=== PATIENT | male | born 1950 | race African-American/Black ===

== ENCOUNTER 2019-04-01 10:06 | Emergency (ER) | payer MEDICARE ==
[~2019-04-01] VITALS: Ht 177.8 cm; Wt 119.7 kg
[~2019-04-01 10:06] MED LIST: ACETAMINOPHEN650 M1 PO; AMLODIPINE BES2.5 MG PO; ATORVASTATIN CA20 MG PO; CATAPRES-TTS 31 EA TD; CATAPRES0.1 MG PO; CLONIDINE HCL0.3 MG PO; COLACE100 MG PO; CORDARONE200 MG PO; COUMADIN3 MG PO; COUMADIN5 MG PO; DIOVAN HCT 3201 EAC1 PO; DOCUSATE SODIU100 MG PO; DUONEB IH; FEOSOL325 MG PO; FUROSEMIDE40 MG PO; GABAPENTIN300 MG PO; HUMULIN R100 UNIT/2 SC; HYDRALAZINE HC100 MG PO; HYDRALAZINE HCL10 MG PO; HYDROXYZINE HCL25 MG PO; IPRATROPIU0.2 MG/1 M NEB; JANUMET PO; JANUVIA100 MG PO; JENTADUETO 2.51 EACH PEG; Janumet PO; KLOR-CON 88 MEQ PO; LACTULOSE20 GM/30 M PO; LISINOPRIL10 MG PO; LISINOPRIL40 MG PO; LOSARTAN POTAS100 MG PO; LYRICA75 MG PO; METOLAZONE5 MG PO; MILK OF MA2400 MG/10 PO; NEURONTIN100 MG PO; NEXIUM40 MG PO; NORVASC5 MG PO; PHOSLO667 MG PO; RENVELA0.8 GM PO; SERTRALINE HCL50 MG PO; SIMETHICONE80 MG PO; TAMSULOSIN HCL0.4 MG PO; TERAZOSIN HCL1 MG PO; TERAZOSIN HCL2 MG PO; TRAZODONE HCL50 MG PO; TYLENOL WITH C1 EACH PO; WARFARIN SODIU2.5 MG PO; WARFARIN SODIUM3 MG PO; WARFARIN SODIUM5 MG PO; [UNRECOGNIZED DRUG - OTHER] PO
--- OUTSIDE RECORDS SUMMARY | 2019-04-01 10:10 | XMS REPORT | Summary of Care ---
Author Organization Unknown Address Unknown Phone Unavailable Encounter HQ Encntr_alias(ROXY) [id number] Date(s): 02/07/15 - 02/07/[address] Discharge Disposition: Home Physician Attending: Chepe Perea MD Physician_Referring: Chito Hilliard NP ADVICE LINE RN Vital Signs No data available for this section Problem List No data available for this section Allergies, Adverse Reactions, Alerts No data available for this section Medications No data available for this section Results No data available for this section Immunizations No data available for this section Procedures No data available for this section Social History No data available for this section Assessment and Plan No data available for this section
--- OUTSIDE RECORDS SUMMARY | 2019-04-01 10:10 | XMS REPORT | Summary of Care ---
Author Author [facility] Organization [facility] Address Unknown Phone Unavailable Encounter ADILENE Cortés(ROXY) [id number] Date(s): 04/09/17 - 04/09/17 [facility] [address] [place] [address]- Discharge Disposition: Home or Self Care Attending Physician: Teodoro Espinoza MD Referring Physician: Teodoro Espinoza MD Vital Signs 1 2 3 Most recent to oldest [Reference Range]: 177.8 cm (04/02/17 12:13 PM) Height 98.3 DegF (04/02/17 12:28 PM) Temperature Oral [96.4-99.1 DegF] 106/62 mmHg (04/09/17 2:15 PM) 112/72 mmHg (04/09/17 1:30 PM) 116/72 mmHg (04/09/17 1:30 PM) Blood Pressure [90-140/60-90 mmHg] 16 BRMIN (04/09/17 1:30 PM) 14 BRMIN (04/09/17 1:15 PM) 12 BRMIN *LOW* (04/09/17 1:00 PM) Respiratory Rate [14-20 BRMIN] 55 bpm *LOW* (04/02/17 12:28 PM) Peripheral Pulse Rate [60-100 bpm] 111.364 kg (04/02/17 12:13 PM) Weight 35.23 m2 (04/02/17 12:13 PM) Body Mass Index Problem List Condition Effective Dates Status Health Status Informant 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) Diabetes mellitus Active type 2(Confirmed) ESRD (end stage Active renal disease)(Confirmed) Hepatitis Resolved C(Confirmed) HTN Active (hypertension)(Confi rmed) Lupus (systemic Active lupus erythematosus)(Confi rmed)2 Neuropathy(Confirmed Active ) 1Degenaritive Disc 2Coagulopathic on Warfarin at home Allergies, Adverse Reactions, Alerts Substance Reaction Severity Status NKDA Active Medications acetaminophen-codeine #3 1 tab, Route: PO, Drug Form: TAB, Dosing Weight 111.364, kg, Q4H, PRN Pain Score 4-6, Start date: 04/09/17 12:21:00 CDT, Duration: 30 day, Stop date: 05/09/17 1 2:20:00 CDT Start Date: 04/09/17 Stop Date: 04/09/17 Status: Discontinued acetaminophen-codeine #3 2 tab, Route: PO, Drug Form: TAB, Dosing Weight 111.364, kg, Q4H, PRN Pain Score 4-6, Start date: 04/09/17 12:21:00 CDT, Duration: 30 day, Stop date: 05/09/17 1 2:20:00 CDT Start Date: 04/09/17 Stop Date: 04/09/17 Status: Discontinued AMIODarone 200 mg oral tablet 200 mg=1 tab, PO, Daily, 0 Refill(s) Start Date: 04/02/17 Status: Ordered amLODIPine 2.5 mg oral tablet 2.5 mg=1 tab, PO, Daily, 0 Refill(s) Start Date: 04/02/17 Status: Ordered Ancef 2 gm, 100 mL, Route: IVPB, Drug form: INJ, PRE OP, Dosing Weight 104.545, kg, St art date: 04/02/17 13:00:00 CDT, Duration: 8 day, Stop date: 04/10/17 12:59:00 C DT, ABX Indication: Surgical Prophylaxis Notes: Same as: Ancef Start Date: 04/02/17 Stop Date: 04/09/17 Status: Discontinued ANES acetaminophen 1,000 mg, Route: PO, Drug form: TAB, ONCE, Dosing Weight 111.364, kg, PRN Pain S core 1-3, Start date: 04/09/17 12:53:00 CDT, Duration: 1 doses or times, Stop da te: Limited # of times Start Date: 04/09/17 Stop Date: 04/09/17 Status: Discontinued ANES albuterol 0.083% inhalation solution 2.49 mg, Route: NEB, Q20Min, Dosing Weight 111.364, kg, PRN Wheezing, Priority: STAT, Start date: 04/09/17 12:53:00 CDT, Duration: 30 day, Stop date: 05/09/17 1 2:52:00 CDT Start Date: 04/09/17 Stop Date: 04/09/17 Status: Discontinued ANES diphenhydrAMINE 12.5 mg, Route: IVP, Drug form: INJ, Q6H, Dosing Weight 111.364, kg, PRN Itching , Start date: 04/09/17 12:53:00 CDT, Duration: 30 day, Stop date: 05/09/17 12:52 :00 CDT Start Date: 04/09/17 Stop Date: 04/09/17 Status: Discontinued ANES fentaNYL 50 microgram, Route: IVP, Q5Min, Dosing Weight 111.364, kg, PRN Pain Score 7-10, Priority: Routine, Start date: 04/09/17 12:53:00 CDT, Duration: 2 doses or time s, Stop date: Limited # of times Start Date: 04/09/17 Stop Date: 04/09/17 Status: Discontinued ANES fentaNYL 25 microgram, Route: IVP, Q5Min, Dosing Weight 111.364, kg, PRN Pain Score 4-6, Priority: Routine, Start date: 04/09/17 12:53:00 CDT, Duration: 4 doses or times , Stop date: Limited # of times Start Date: 04/09/17 Stop Date: 04/09/17 Status: Discontinued ANES flumazenil 0.2 mg, Route: IVP, PRN, Dosing Weight 111.364, kg, PRN Benzodiazepine Reversal, Initial dose, Start date: 04/09/17 12:53:00 CDT, Duration: 30 day, Stop date: 0 05/09/17 12:52:00 CDT Start Date: 04/09/17 Stop Date: 04/09/17 Status: Discontinued ANES HYDROmorphone 0.5 mg, Route: IVP, Q5Min, Dosing Weight 111.364, kg, PRN Pain Score 7-10, Start date: 04/09/17 12:53:00 CDT, Duration: 4 doses or times, Stop date: Limited # of times Start Date: 04/09/17 Stop Date: 04/09/17 Status: Discontinued ANES meperidine 12.5 mg, Route: IVP, Q30Min, Dosing Weight 111.364, kg, PRN Other -See Comment, For shivering, Start date: 04/09/17 12:53:00 CDT, Duration: 2 doses or times, St op date: Limited # of times Start Date: 04/09/17 Stop Date: 04/09/17 Status: Discontinued ANES naloxone 0.1 mg, Route: SUB-Q, Q6H, Dosing Weight 111.364, kg, PRN Itching, Start date: 0 04/09/17 12:53:00 CDT, Duration: 30 day, Stop date: 05/09/17 12:52:00 CDT Start Date: 04/09/17 Stop Date: 04/09/17 Status: Discontinued ANES naloxone 0.4 mg, Route: IVP, Q2MIN, Dosing Weight 111.364, kg, PRN Narcotic Reversal, Sta rt date: 04/09/17 12:53:00 CDT, Duration: 8 doses or times, Stop date: Limited # of times Start Date: 04/09/17 Stop Date: 04/09/17 Status: Discontinued ANES ondansetron 4 mg, Route: IVP, ONCE, Dosing Weight 111.364, kg, PRN Nausea & Vomiting, Start date: 04/09/17 12:53:00 CDT Start Date: 04/09/17 Stop Date: 04/09/17 Status: Discontinued ANES oxyCODONE 10 mg, Route: NG, Drug form: LIQ, Q4H, Dosing Weight 111.364, kg, PRN Pain Score 7-10, Start date: 04/09/17 12:53:00 CDT, Duration: 30 day, Stop date: 05/09/17 12:52:00 CDT Start Date: 04/09/17 Stop Date: 04/09/17 Status: Discontinued ANES oxyCODONE 10 mg, Route: PO, Drug form: TAB, Q4H, Dosing Weight 111.364, kg, PRN Pain Score 7-10, Start date: 04/09/17 12:53:00 CDT, Duration: 30 day, Stop date: 05/09/17 12:52:00 CDT Start Date: 04/09/17 Stop Date: 04/09/17 Status: Discontinued ANES oxyCODONE 5 mg, Route: NG, Drug form: LIQ, Q4H, Dosing Weight 111.364, kg, PRN Pain Score 4-6, Start date: 04/09/17 12:53:00 CDT, Duration: 30 day, Stop date: 05/09/17 12 :52:00 CDT Start Date: 04/09/17 Stop Date: 04/09/17 Status: Discontinued ANES oxyCODONE 5 mg, Route: PO, Drug form: TAB, Q4H, Dosing Weight 111.364, kg, PRN Pain Score 4-6, Start date: 04/09/17 12:53:00 CDT, Duration: 30 day, Stop date: 05/09/17 12 :52:00 CDT Start Date: 04/09/17 Stop Date: 04/09/17 Status: Discontinued ANES promethazine 6.25 mg, Route: IVPB, ONCE, Dosing Weight 111.364, kg, PRN Nausea & Vomiting, Start date: 04/09/17 12:53:00 CDT Start Date: 04/09/17 Stop Date: 04/09/17 Status: Discontinued ANES scopolamine 1.5 mg transdermal film 1 patch, Route: TOP, Drug Form: ERFILM, Dosing Weight 111.364, kg, ONCE, Apply b ehind ear. Avoid use in elderly., Start date: 04/09/17 12:53:00 CDT, Stop date: 04/09/17 12:53:00 CDT Notes: Change patch every 72 hours (Same as: Transderm-Scop) Start Date: 04/09/17 Stop Date: 04/09/17 Status: Ordered cloNIDine 0.3 mg oral tablet 0.3 mg=1 tab, PO, BID, # 60 tab, 1 Refill(s) Start Date: 04/02/17 Status: Ordered Dextrose 50% Syringe 12.5 gm, Route: IVP, Dosing Weight 111.364, kg, ONCE, Start date: 04/09/17 9:44: 00 CDT, Stop date: 04/09/17 9:44:00 CDT Start Date: 04/09/17 Stop Date: 04/09/17 Status: Completed famotidine (ANES) Route: IV, Drug form: INJ, ONCE, Stop date: 04/09/17 12:17:00 CDT Start Date: 04/09/17 Stop Date: 04/09/17 Status: Completed fentaNYL (ANES) Route: IV, Drug form: INJ, ONCE, Stop date: 04/09/17 12:22:00 CDT Start Date: 04/09/17 Stop Date: 04/09/17 Status: Completed furosemide 40 mg oral tablet 40 mg=1 tab, PO, Daily, 0 Refill(s) Start Date: 04/02/17 Status: Ordered gabapentin 100 mg oral capsule 300 mg=3 cap, PO, Bedtime, 0 Refill(s) Start Date: 04/02/17 Status: Ordered hydrALAZINE 25 mg oral tablet 25 mg=1 tab, PO, BID, 0 Refill(s) Start Date: 04/02/17 Status: Ordered Januvia 100 mg oral tablet 100 mg=1 tab, PO, Daily, 0 Refill(s) Start Date: 04/02/17 Status: Ordered lidocaine (ANES) Route: IV, Drug form: INJ, ONCE, Stop date: 04/09/17 12:17:00 CDT Start Date: 04/09/17 Stop Date: 04/09/17 Status: Completed metoclopramide (ANES) Route: IV, Drug form: INJ, ONCE, Stop date: 04/09/17 12:17:00 CDT Start Date: 04/09/17 Stop Date: 04/09/17 Status: Completed midazolam (ANES) Route: IV, Drug form: SOLN, ONCE, Stop date: 04/09/17 12:17:00 CDT Start Date: 04/09/17 Stop Date: 04/09/17 Status: Completed morphine Sulfate 2 mg, Route: IVP, Q3H, Dosing Weight 111.364, kg, PRN Pain Score 1-3, Start date : 04/09/17 12:21:00 CDT, Duration: 30 day, Stop date: 05/09/17 12:20:00 CDT Start Date: 04/09/17 Stop Date: 04/09/17 Status: Discontinued ondansetron (ANES) Route: IV, Drug form: INJ, ONCE, Stop date: 04/09/17 12:22:00 CDT Start Date: 04/09/17 Stop Date: 04/09/17 Status: Completed propofol (ANES) Route: IV, Drug form: INJ, ONCE, Stop date: 04/09/17 12:17:00 CDT Start Date: 04/09/17 Stop Date: 04/09/17 Status: Completed sertraline 50 mg oral tablet 50 mg=1 tab, PO, Daily, 0 Refill(s) Start Date: 04/02/17 Status: Ordered sodium chloride 0.9% 100 ml INJ (ANES) + ceFAZolin (ANES) (ANES) Route: IV, Drug form: INJ, Start date: 04/09/17 11:18:00 CDT, Stop date: 7 12:18:00 CDT Start Date: 04/09/17 Stop Date: 04/09/17 Status: Completed sodium chloride 0.9% 250 ml INJ (ANES) + vancomycin (ANES) (ANES) Route: IV, Drug form: INJ, Start date: 04/09/17 11:16:00 CDT, Stop date: 7 12:16:00 CDT Start Date: 04/09/17 Stop Date: 04/09/17 Status: Completed sodium chloride 0.9% 500 ml INJ (ANES) Route: IV, Total Volume: 500, Start date: 04/09/17 11:00:00 CDT, Stop date: 12/25 12:00:00 CDT Start Date: 04/09/17 Stop Date: 04/09/17 Status: Completed Sodium Chloride 0.9% IV 1000 mL 1,000 mL, Rate: 25 ml/hr, Infuse over: 40 hr, Route: IV, Dosing Weight 111.364 k g, Total Volume: 1,000, Start date: 04/09/17 9:56:00 CDT, Duration: 30 day, Stop date: 05/09/17 9:55:00 CDT Start Date: 04/09/17 Stop Date: 04/09/17 Status: Discontinued vancomycin + sodium chloride 0.9% INJ 250 mL 1 gm, Route: IVPB, PRE OP, Dosing Weight 104.545, kg, Start date: 04/02/17 13:00 :00 CDT, Duration: 8 day, Stop date: 04/10/17 12:59:00 CDT, ABX Indication: Surg ical Prophylaxis Notes: TIME CRITICAL MEDICATION(Same As: Vancocin)Infusion rate< 1000 mg: infuse over 1 [id number] - 1500 mg: infuse over 1.5 [id number] - 2000 mg: infuse over 2 hours> 2001 mg: infuse over 2.5 hours MEDICATION WASTE Product Size: 1000 mgProduct Wasted: ___ mg Start Date: 04/02/17 Stop Date: 04/09/17 Status: Discontinued warfarin 3 mg oral tablet 3 mg=1 tab, PO, Daily, 0 Refill(s) Start Date: 04/02/17 Status: Ordered Results BLOOD BANK RESULTS Most recent to 1 oldest [Reference Range]: ABO/Rh O POS *Unknown* (04/02/17 1:44 PM) Antibody Scrn Negative (04/02/17 1:44 PM) ELECTROLYTES Most recent to 1 oldest [Reference Range]: Sodium Lvl [135-145 133 mEq/L mEq/L] *LOW* (04/02/17 1:44 PM) Potassium Lvl 4.1 mEq/L 4.7 mEq/L [3.5-5.1 mEq/L] (04/09/17 9:23 AM) (04/02/17 1:44 PM) Chloride Lvl [95-109 97 mEq/L mEq/L] (04/02/17 1:44 PM) CO2 [24-32 mEq/L] 25 mEq/L (04/02/17 1:44 PM) AGAP [10.0-20.0 15.7 mEq/L mEq/L] (04/02/17 1:44 PM) CHEM PANEL Most recent to 1 2 oldest [Reference Range]: Creatinine Lvl 6.10 mg/dL [0.50-1.40 mg/dL] *HI* (04/02/17 1:44 PM) eGFR 9 mL/min/1.73m2 1 *NA* (04/02/17 1:44 PM) BUN [7-22 mg/dL] 38 mg/dL *HI* (04/02/17 1:44 PM) Glucose Lvl [70-99 90 mg/dL mg/dL] (04/02/17 1:44 PM) Calcium Lvl 9.3 mg/dL [8.5-10.5 mg/dL] (04/02/17 1:44 PM) 1Result Comment: The eGFR is calculated using the CKD-EPI formula. In most young, healthy individuals the eGFR will be >90 mL/min/1.73m2. The eGFR declines with age. An eGFR of 60-89 may be normal in some populations, particularly the elderly, for whom the CKD-EPI formula has not been extensively validated. Use of the eGFR is not recommended in the following populations: Individuals with unstable creatinine concentrations, including patients and those with serious co-morbid conditions. Patients with extremes in muscle mass or diet. The data above are obtained from the National Kidney Disease Education Program ( NKDEP) which additionally recommends that when the eGFR is used in patients with extremes of body mass index for purposes of drug dosing, the eGFR should be mul tiplied by the estimated BMI. HEMATOLOGY Most recent to 1 2 oldest [Reference Range]: WBC [3.7-10.4 K/CMM] 7.7 K/CMM (04/02/17 1:44 PM) RBC [4.70-6.10 4.10 M/CMM M/CMM] *LOW* (04/02/17 1:44 PM) Hgb [14.0-18.0 g/dL] 11.6 g/dL *LOW* (04/02/17 1:44 PM) Hct [42.0-54.0 %] 35.4 % *LOW* (04/02/17 1:44 PM) MCV [80.0-94.0 fL] 86.4 fL (04/02/17 1:44 PM) MCH [27.0-31.0 pg] 28.4 pg (04/02/17 1:44 PM) MCHC [32.0-36.0 32.8 g/dL g/dL] (04/02/17 1:44 PM) RDW [11.5-14.5 %] 16.3 % *HI* (04/02/17 1:44 PM) Platelet [133-450 123 K/CMM K/CMM] *LOW* (04/02/17 1:44 PM) MPV [7.4-10.4 fL] 8.7 fL (04/02/17 1:44 PM) Segs [45.0-75.0 %] 66.1 % (04/02/17 1:44 PM) Lymphocytes 21.4 % [20.0-40.0 %] (04/02/17 1:44 PM) Monocytes [2.0-12.0 8.8 % %] (04/02/17 1:44 PM) Eosinophils [0.0-4.0 2.6 % %] (04/02/17 1:44 PM) Basophils [0.0-1.0 1.1 % %] *HI* (04/02/17 1:44 PM) Segs-Bands # 5.1 K/CMM [1.5-8.1 K/CMM] (04/02/17 1:44 PM) Lymphocytes # 1.6 K/CMM [1.0-5.5 K/CMM] (04/02/17 1:44 PM) Monocytes # [0.0-0.8 0.7 K/CMM K/CMM] (04/02/17 1:44 PM) Eosinophils # 0.2 K/CMM [0.0-0.5 K/CMM] (04/02/17 1:44 PM) Basophils # [0.0-0.2 0.1 K/CMM K/CMM] (04/02/17 1:44 PM) PT [12.0-14.7 14.7 seconds seconds] (04/02/17 1:44 PM) INR [0.85-1.17] 1.13 (04/02/17 1:44 PM) PTT [22.9-35.8 45.1 seconds seconds] *HI* (04/02/17 1:44 PM) Immunizations No data available for this section Procedures Procedure Date Related Diagnosis Body Site Cervical discectomy1 Spinal fusion2 [id number] Social History Social History Type Response Substance Abuse Use: None. Alcohol Past Smoking Status Former smoker; Exposure to Tobacco Smoke None; Cigarette Smoking Last 365 Days No; Reg Smoking Cessation Counseling No Assessment and Plan No data available for this section
--- OUTSIDE RECORDS SUMMARY | 2019-04-01 10:10 | XMS REPORT | Summary of Care ---
Author Organization Unknown Address Unknown Phone Unavailable Encounter HQ Alexyr_kourtney(ROXY) [id number] Date(s): 10/24/14 - 10/24/14 [facility] [address] Discharge Disposition: Home Physician Attending: Lauren Obrien MD Reason for Visit 786.59 Problem List No data available for this section Allergies, Adverse Reactions, Alerts No data available for this section Medications No data available for this section Medications Administered During Your Visit No data available for this section Immunizations No data available for this section
--- OUTSIDE RECORDS SUMMARY | 2019-04-01 10:10 | XMS REPORT | Summary of Care ---
Author Author [facility] Organization [facility] Address Unknown Phone Unavailable Encounter ADILENE Cortés(ROXY) [id number] Date(s): 06/04/17 - 06/04/17 [facility] [address] [place] [address]- Discharge Disposition: Home or Self Care Attending Physician: Teodoro Espinoza MD Referring Physician: Teodoro Espinoza MD Vital Signs 1 2 3 Most recent to oldest [Reference Range]: 140/79 mmHg (06/04/17 12:45 PM) 121/76 mmHg (06/04/17 12:30 PM) 145/82 mmHg *HI* (06/04/17 12:15 PM) Blood Pressure [90-140/60-90 mmHg] 17 BRMIN (06/04/17 12:45 PM) 14 BRMIN (06/04/17 12:30 PM) 14 BRMIN (06/04/17 12:15 PM) Respiratory Rate [14-20 BRMIN] Problem List Condition Effective Dates Status Health Status Informant 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) Diabetes mellitus Active type 2(Confirmed) ESRD (end stage Active renal disease)(Confirmed) Hepatitis Resolved C(Confirmed) HTN Active (hypertension)(Confi rmed) Lupus (systemic Active lupus erythematosus)(Confi rmed)2 Neuropathy(Confirmed Active ) 1Degenaritive Disc 2Coagulopathic on Warfarin at home Allergies, Adverse Reactions, Alerts Substance Reaction Severity Status NKDA Active Medications No data available for this section Results No data available for this section Immunizations No data available for this section Procedures Procedure Date Related Diagnosis Body Site Cervical discectomy1 Spinal fusion2 [id number] Social History Social History Type Response Substance Abuse Use: None. Alcohol Past Smoking Status Former smoker; Exposure to Tobacco Smoke None; Cigarette Smoking Last 365 Days No; Reg Smoking Cessation Counseling No Assessment and Plan No data available for this section
--- OUTSIDE RECORDS SUMMARY | 2019-04-01 10:11 | XMS REPORT ---
Author Author [facility] Address Unknown Phone Unavailable Care Team Providers [facility] Name Role Phone KERI ISABEL Unavailable Unavailable Problems This patient has no known problems. Allergies, Adverse Reactions, Alerts This patient has no known allergies or adverse reactions. Medications This patient has no known medications. Results Test Description Test Time Test Comments Text Results Atomic Results Result Comments CT ABDOMEN/PELVIS WO [place] [address] Patient Name: FELICIANO BERMUDEZ JR MR #: [id number] : 1950 Age/Sex: 66/M Acct #: [id number] Req #: [id number] Adm Physician: KERI ISABEL MD Ordered by: KERI ISABEL MD Report #: [id number] Location: MED/SURG2 Room/Bed: [facility] Procedure: [id number] CT/CT ABDOMEN/PELVIS WO Exam Date: 07/05/17 Exam Time: 1800 REPORT STATUS: Signed EXAM: CT ABDOMEN AND PELVIS WITHOUT IV CONTRAST DATE: July 05, 2017 Time stamp on Exam: 1829 hours INDICATION: Abdominal pain COMPARISON: CT of the chest November 04, 2016 TECHNIQUE: The abdomen and pelvis were scanned using a multidetector helical scanner. Coronal and sagittal reformations were obtained. Routine protocol performed. IV Contrast: None Oral Contrast: Gastrografin CTDIvol has been reviewed. It is below the limits set by the Radiation Protocol Committee (RPC). A preliminary report was provided by Dr. Nassar July 06, 2017 at 2:01 AM. FINDINGS: LOWER THORAX: There is a 2.5 cm right middle lobe low density round nodule with internal fat. This has decreased in size from 4 cm compared to prior CT November 04, 2016. Right middle lobe and lingular scarring. LIVER: Nodular liver contour and cirrhotic morphology. BILIARY: The gallbladder is unremarkable. No ductal dilation. SPLEEN: Mild splenomegaly PANCREAS: No masses ADRENALS: No nodules KIDNEYS: No nephroureterolithiasis or hydronephrosis. GI TRACT: The stomach is distended with oral contrast. No small or large bowel dilation. Normal appendix. VESSELS: No aneurysms PERITONEUM/RETROPERITONEUM: No free air or fluid LYMPH NODES: No lymphadenopathy REPRODUCTIVE ORGANS: Unremarkable BLADDER: Unremarkable SOFT TISSUES: Unremarkable BONES: Multiple old right-sided rib fractures. IMPRESSION: The stomach is very distended with Gastrografin and debris. This may be secondary to gastroparesis or simply recently ingested meal and Gastrografin. Cirrhotic liver morphology and mild splenomegaly. Signed by: Dr. Raina Camacho M.D. on 07/20/2017 10:37 PM Dictated By: RIANA CAMACHO MD 36 Transcribed By: DUNCAN on 07/20/172236 COPY TO: KERI ISABEL MD
--- OUTSIDE RECORDS SUMMARY | 2019-04-01 10:11 | XMS REPORT | Summary of Care ---
Author Author [facility] Organization [facility] Address Unknown Phone Unavailable Encounter ADILENE Cortés(ORXY) [id number] Date(s): 12/28/15 - 01/10/16 [facility] [address] [facility] provided by [facility] [place] [address]- Discharge Disposition: Jail Care Attending Physician: Micaela Xavier MD Admitting Physician: Micaela Xavier MD Referring Physician: Rodger Hull MD Vital Signs 1 2 3 Most recent to oldest [Reference Range]: 177.8 cm (12/28/15 11:37 PM) Height 129.2 kg (01/10/16 5:17 AM) 135.3 kg (01/09/16 5:05 AM) 104.005 kg (01/01/16 4:40 AM) Current Weight 112/62 mmHg (01/10/16 3:00 PM) 112/62 mmHg (01/10/16 2:00 PM) 145/87 mmHg *HI* (01/10/16 1:00 PM) Blood Pressure [90-140/60-90 mmHg] 0 BRMIN *LOW* (01/10/16 3:00 PM) 0 BRMIN *LOW* (01/10/16 2:00 PM) 19 BRMIN (01/10/16 1:00 PM) Respiratory Rate [14-20 BRMIN] 104.545 kg (12/28/15 11:37 PM) Weight 33.07 m2 (12/28/15 11:37 PM) Body Mass Index Problem List Condition Effective Dates Status Health Status Informant 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 (Same as: Tylenol Extra Streng th) Start Date: 01/07/16 Stop Date: 01/10/16 Status: Discontinued acetaminophen 1,000 mg, 31.23 mL, Route: NG, Drug form: LIQ, Q6H, Dosing Weight 104.545, kg, S tart date: 12/30/15 6:00:00, Duration: 30 day, Stop date: 01/29/16 0:00:00 Notes: Max aejfssfptfwli=3992sh/day (4 gm/day). (Same as: Tylenol) Start Date: 12/30/15 Stop Date: 01/06/16 Status: Discontinued acetaminophen 500 mg oral tablet 1,000 mg=2 tab, NG, Q6H, 0 Refill(s) Start Date: 01/10/16 Status: Ordered albumin human 25% intravenous solution 25 gm, 100 mL, Route: IVPB, Drug form: INJ, ONCE, Dosing Weight 104.545, kg, Sta rt date: 01/02/16 15:58:00, Stop date: 01/02/16 15:58:00 Notes: Lot #: Mfg: (Same as: Plasbumin-25)"blood pr oduct derivative"WASTE: F/P - Red; E -Red MEDICATION WASTE Product Size: 25 gmProduct Wasted: ___ gm Start Date: 01/02/16 Stop Date: 01/02/16 Status: Completed albumin human 25% intravenous solution 25 gm, 100 mL, Route: IVPB, Drug form: INJ, Q8H, Dosing Weight 104.545, kg, Star t date: 01/05/16 8:00:00, Duration: 3 doses or times, Stop date: 01/06/16 0:00:0 0 Notes: Lot #: Mfg: (Same as: Plasbumin-25)"blood pr oduct derivative"WASTE: F/P - Red; E -Red MEDICATION WASTE Product Size: 25 gmProduct Wasted: ___ gm Start Date: 01/05/16 Stop Date: 01/06/16 Status: Completed albuterol 0.083% inhalation solution 2.49 mg, 3 mL, Route: NEB, Drug form: SOLN, RQ4H, Dosing Weight 104.545, kg, PRN Wheezing, Start date: 01/04/16 23:59:00, Duration: 30 day, Stop date: 02/03/16 23:58:00, Pediatric Dosing Notes: SEE RT DOCUMENTATION (Same as: Brannon) Start Date: 01/04/16 Stop Date: 01/10/16 Status: Discontinued albuterol 0.083% inhalation solution NEB, RQ4H, PRN Wheezing, Pediatric Dosing, 0 Refill(s) Start Date: 01/10/16 Status: Ordered albuterol 0.083% inhalation solution 1.245 mg, 1.5 mL, Route: NEB, Drug form: SOLN, RQ6H, Dosing Weight 104.545, kg, PRN Wheezing, Start date: 01/02/16 16:30:00, Duration: 30 day, Stop date: 16:29:00 Notes: SEE RT DOCUMENTATION (Same as: Brannon) Start Date: 01/02/16 Stop Date: 01/04/16 Status: Discontinued amLODIPine 5 mg, 1 tab, Route: PEG, Drug form: TAB, Daily, Dosing Weight 104.545, kg, Start date: 01/08/16 10:00:00, Duration: 30 day, Stop date: 02/07/16 9:00:00 Notes: (Same as: Analilia) Start Date: 01/08/16 Stop Date: 01/10/16 Status: Discontinued amLODIPine 10 mg, 1 tab, Route: PEG, Drug form: TAB, Daily, Dosing Weight 104.545, kg, Star t date: 01/11/16 9:00:00, Duration: 30 day, Stop date: 02/09/16 9:00:00 Notes: (Same as: Norvasc) Start Date: 01/11/16 Stop Date: 01/10/16 Status: Canceled amLODIPine 10 mg oral tablet 10 mg=1 tab, PEG, Daily, 0 Refill(s) Start Date: 01/10/16 Status: Ordered amLODIPine-atorvastatin 10 mg-10 mg oral tablet 1 tab, PO, Daily, 0 Refill(s) Start Date: 01/01/16 Stop Date: 01/10/16 Status: Discontinued Ancef 2 gm, Route: IVPB, ONCE, Dosing Weight 104.545, kg, Start date: 12/31/15 10:23:0 0, Duration: 1 doses or times, Stop date: 12/31/15 10:23:00, Surgical Prophylaxi s Only; For patients < 120 kg Start Date: 12/31/15 Stop Date: 12/31/15 Status: Completed aspirin 81 mg, 1 tab, Route: PO, Drug form: ECTAB, Q24H, kg, Start date: 12/28/15 22:00: 00, Duration: 30 day, Stop date: 01/26/16 22:00:00 Notes: Do not crush or chew.(Same As: Ecotrin) Start Date: 12/28/15 Stop Date: 01/10/16 Status: Discontinued aspirin 81 mg tablet, enteric coated 81 mg=1 tab, PO, Q24H, 0 Refill(s) Start Date: 01/10/16 Status: Ordered atorvastatin 20 mg oral tablet 20 mg=1 tab, PO, Bedtime, 0 Refill(s) Start Date: 01/01/16 Stop Date: 01/10/16 Status: Discontinued bacitracin topical 1 appl, Route: TOP, Daily, Drug form: OINT, Start date: 01/01/16 9:00:00, Durati on: 30 day, Stop date: 01/30/16 9:00:00 Start Date: 01/01/16 Stop Date: 01/10/16 Status: Discontinued bacitracin topical 1 appl, Route: TOP, TID, Drug form: OINT, PRN Dry Lips, Start date: 01/01/16 2:3 4:00, Duration: 30 day, Stop date: 01/31/16 2:33:00 Start Date: 01/01/16 Stop Date: 01/10/16 Status: Discontinued bacitracin topical 1 appl, TOP, TID, PRN Dry Lips, 0 Refill(s) Start Date: 01/10/16 Status: Ordered Benadryl 25 mg, 1 cap, Route: NG, Drug form: CAP, BID, Dosing Weight 104.545, kg, PRN as needed for allergy symptoms, Start date: 01/10/16 10:15:00, Duration: 30 day, St op date: 02/09/16 10:14:00 Notes: (Same as: Benadryl) Start Date: 01/10/16 Stop Date: 01/10/16 Status: Discontinued Benadryl 25 mg, 1 cap, Route: PO, Drug form: CAP, BID, Dosing Weight 104.545, kg, Start d ate: 01/04/16 20:53:00, Duration: 30 day, Stop date: 02/03/16 17:00:00 Notes: (Same as: Benadryl) Start Date: 01/04/16 Stop Date: 01/10/16 Status: Discontinued bisacodyl 10 mg, 1 supp, Route: W[place], Drug form: SUPP, Daily, Dosing Weight 104.545, kg, PRN Constipation, Start date: 01/02/16 14:22:00, Duration: 30 day, Stop date: 01/31 14:21:00 Notes: (Same As: Dulcolax, Bisco-Lax) Start Date: 01/02/16 Stop Date: 01/10/16 Status: Discontinued bisacodyl 10 mg, 1 supp, Route: W[place], Drug form: SUPP, ONCE, Dosing Weight 104.545, kg, Star t date: 01/02/16 14:22:00, Stop date: 01/02/16 14:22:00 Notes: (Same As: Dulcolax, Bisco-Lax) Start Date: 01/02/16 Stop Date: 01/02/16 Status: Completed Cardene 40 mg in NS 200 mL (Titrate.) IV 40 mg 40 mg, 200 mL, Rate: Titrate, Start Dose: 5 mg/hr, Titration: 2.5 mg/hr every 15 minutes, Goal(s): Systolic BP < 160mmHg, Max Dose: 15 mg/hr, Route: IV, Dosing Weight 104.545 kg, Total Volume: 200, Start date: 12/30/15 23:54:00, Duration: 30 day, Stop... Notes: Same as: CardeneConcentration: (0.2 mg /1 ml ) Start Date: 12/30/15 Stop Date: 01/01/16 Status: Discontinued Cardene 40 mg in NS 200 mL (Titrate.) IV 40 mg 40 mg, 200 mL, Rate: Titrate, Start Dose: 5 mg/hr, Titration: 2.5 mg/hr every 15 minutes, Goal(s): SBP <160mmHg. Hold for HR <60, Max Dose: 15 mg/hr, Route: IV, Dosing Weight 104.545 kg, Total Volume: 200, Start date: 12/29/15 0:47:00, Duration: 30 da... Notes: Same as: CardeneConcentration: (0.2 mg /1 ml ) Start Date: 12/29/15 Stop Date: 12/29/15 Status: Discontinued ceFAZolin (SCIP) 2 gm, Route: IV, Drug form: INJ, ONCE, Dosing Weight 104.545, kg, Start date: 9:16:00, Stop date: 01/07/16 9:16:00 Start Date: 01/07/16 Stop Date: 01/07/16 Status: Completed cloNIDine 0.3 mg oral tablet 0.3 mg=1 tab, PO, BID, # 60 tab, 1 Refill(s) Start Date: 01/01/16 Stop Date: 01/10/16 Status: Discontinued D5W 1,000 mL 1,000 mL, Rate: 125 ml/hr, Infuse over: 8 hr, Route: IV, Dosing Weight 104.545 k g, Total Volume: 1,000, Start date: 01/05/16 20:39:00, Duration: 30 day, Stop da te: 02/04/16 20:38:00 Start Date: 01/05/16 Stop Date: 01/06/16 Status: Discontinued Dextrose 50% Syringe 25 gm, 50 mL, Route: IVP, Drug Form: INJ, Dosing Weight 104.545, kg, PRN, PRN Ab normal Lab Result, Start date: 01/01/16 3:09:00, Duration: 30 day, Stop date: 4:08:00, For FSBG < 40 mg/dL Start Date: 01/01/16 Stop Date: 01/06/16 Status: Discontinued Dextrose 50% Syringe 12.5 gm, 25 mL, Route: IVP, Drug Form: INJ, Dosing Weight 104.545, kg, PRN, PRN Abnormal Lab Result, Start date: 01/01/16 3:09:00, Duration: 30 day, Stop date: 01/31/16 4:08:00, For FSBG 40 mg/dL - 60 mg/dL Start Date: 01/01/16 Stop Date: 01/04/16 Status: Discontinued Dextrose 50% Syringe 25 gm, 50 mL, Route: IVP, Drug Form: INJ, Dosing Weight 104.545, kg, PRN, PRN Ab normal Lab Result, Start date: 01/02/16 16:00:00, Duration: 30 day, Stop date: 0 02/01/16 16:59:00, For FSBG < 40 mg/dL Start Date: 01/02/16 Stop Date: 01/04/16 Status: Discontinued Dextrose 50% Syringe 12.5 gm, 25 mL, Route: IVP, Drug Form: INJ, Dosing Weight 104.545, kg, PRN, PRN Abnormal Lab Result, Start date: 01/02/16 16:00:00, Duration: 30 day, Stop date: 02/01/16 16:59:00, For FSBG 40 mg/dL - 60 mg/dL Start Date: 01/02/16 Stop Date: 01/10/16 Status: Discontinued Dextrose 50% Syringe 25 gm, 50 mL, Route: IVP, Drug Form: INJ, kg, PRN, PRN Abnormal Lab Result, Star t date: 12/28/15 21:47:00, Duration: 30 day, Stop date: 01/27/16 22:46:00, For F SBG < 40 mg/dL Start Date: 12/28/15 Stop Date: 01/01/16 Status: Discontinued Dextrose 50% Syringe 12.5 gm, 25 mL, Route: IVP, Drug Form: INJ, kg, PRN, PRN Abnormal Lab Result, St art date: 12/28/15 21:47:00, Duration: 30 day, Stop date: 01/27/16 22:46:00, For FSBG 40 mg/dL - 60 mg/dL Start Date: 12/28/15 Stop Date: 01/01/16 Status: Discontinued Dilaudid 0.5 mg, 0.25 mL, Route: IVP, Drug form: INJ, ONCE, Dosing Weight 104.545, kg, Pr iority: STAT, Start date: 12/31/15 14:00:00, Stop date: 12/31/15 14:00:00 Notes: Same as: Dilaudid Start Date: 12/31/15 Stop Date: 12/31/15 Status: Completed docusate 100 mg, 1 cap, Route: NG, Drug form: CAP, Q12H, kg, Start date: 12/29/15 9:00:00 , Duration: 30 day, Stop date: 01/27/16 21:00:00 Notes: (Same as: Colace) (Do Not Crush) Start Date: 12/29/15 Stop Date: 12/29/15 Status: Canceled docusate sodium 150 mg/15 mL oral liquid 100 mg, 10 mL, Route: PO, Drug form: LIQ, BID, Dosing Weight 104.545, kg, Start date: 12/29/15 9:00:00, Duration: 30 day, Stop date: 01/27/16 17:00:00 Notes: (Same as: Colace) Start Date: 12/29/15 Stop Date: 01/10/16 Status: Discontinued docusate sodium 150 mg/15 mL oral liquid 100 mg=10 mL, PO, BID, 0 Refill(s) Start Date: 01/10/16 Status: Ordered enoxaparin 30 mg, 0.3 mL, Route: SUB-Q, Drug form: INJ, [id number], kg, Start date: 01/09/16 16:00:00, Duration: 30 day, Stop date: 02/08/16 4:00:00 Notes: (Same as: Lovenox) Start Date: 01/09/16 Stop Date: 01/10/16 Status: Discontinued enoxaparin 30 mg, 0.3 mL, Route: SUB-Q, Drug form: INJ, [id number], kg, Start date: 12/28/15 22:00:00, Duration: 30 day, Stop date: 01/27/16 10:00:00 Notes: (Same as: Lovenox) Start Date: 12/28/15 Stop Date: 12/29/15 Status: Discontinued enoxaparin 30 mg=0.3 mL, SUB-Q, [id number], 0 Refill(s) Start Date: 01/10/16 Status: Ordered enoxaparin 40 mg, 0.4 mL, Route: SUB-Q, Drug form: INJ, Q12H, kg, Start date: 12/29/15 8:00 :00, Duration: 30 day, Stop date: 01/28/16 4:00:00 Notes: (Same as: Lovenox) Start Date: 12/29/15 Stop Date: 01/09/16 Status: Discontinued famotidine 20 mg, 2 mL, Route: IVPB, Drug form: INJ, Q12H, kg, Start date: 12/29/15 9:00:00 , Duration: 30 day, Stop date: 01/27/16 21:00:00 Notes: (Same as: Pepcid)Can be dilute in 5-10cc NS IVP: Slow IV push over at le ast 2 minutes. Start Date: 12/29/15 Stop Date: 12/31/15 Status: Discontinued fentaNYL 1000 microgram in 20 mL NS (Titrate.) IV 1,000 microgram 1,000 microgram, 20 mL, Rate: Titrate, Start Dose: 50 microgram/hr, Titration: T itrate by 25 micrograms/hour every 15 minutes, Goal(s): RASS 0, Max Dose: 300 mc g/hr, Route: IV, Total Volume: 20, Start date: 12/28/15 21:47:00, Duration: 30 d ay, Stop da... Start Date: 12/28/15 Stop Date: 12/29/15 Status: Discontinued furosemide 40 mg oral tablet 40 mg=1 tab, PO, Daily, 0 Refill(s) Start Date: 01/01/16 Stop Date: 01/10/16 Status: Discontinued furosemide 40 mg oral tablet 40 mg, 1 tab, Route: PO, Drug form: TAB, Daily, Dosing Weight 104.545, kg, Prior ity: NOW, Start date: 01/02/16 14:05:00, Duration: 30 day, Stop date: 02/01/16 9 :00:00 Notes: (Same as: Lasix) May cause GI upset. Give with food or milk. Start Date: 01/02/16 Stop Date: 01/05/16 Status: Discontinued gabapentin 600 mg, 2 cap, Route: PEG, Drug form: CAP, Q8H, Dosing Weight 104.545, kg, Start date: 01/08/16 16:00:00, Duration: 30 day, Stop date: 02/07/16 8:00:00 Notes: (Same as: Neurontin) Start Date: 01/08/16 Stop Date: 01/10/16 Status: Discontinued gabapentin 300 mg, 1 cap, Route: NG, Drug form: CAP, Q8H, Dosing Weight 104.545, kg, Start date: 01/03/16 16:00:00, Duration: 30 day, Stop date: 02/02/16 8:00:00 Notes: (Same as: Neurontin) Start Date: 01/03/16 Stop Date: 01/08/16 Status: Discontinued gabapentin 300 mg oral capsule 600 mg=2 cap, PEG, Q8H, 0 Refill(s) Start Date: 01/10/16 Status: Ordered hydrALAZINE 10 mg, 0.5 mL, Route: IVP, Drug form: INJ, Q4H, Dosing Weight 104.545, kg, PRN O ther -See Comment, Start date: 12/30/15 14:34:00, Duration: 30 day, Stop date: 0 01/29/16 14:33:00, SBP > 160 Notes: (Same as: Apresoline)Push over 5 minutes Start Date: 12/30/15 Stop Date: 01/10/16 Status: Discontinued hydrALAZINE 20 mg/mL injectable solution 10 mg=0.5 mL, IVP, Q4H, PRN Other -See Comment | SBP > 160, 0 Refill(s) Start Date: 01/10/16 Status: Ordered hydromorphone 0.5 mg, 0.25 mL, Route: IVP, Drug form: INJ, ONCE, Dosing Weight 104.545, kg, Pr iority: STAT, Start date: 01/05/16 3:08:00, Stop date: 01/05/16 3:08:00 Notes: Same as: Dilaudid Start Date: 01/05/16 Stop Date: 01/05/16 Status: Completed insulin detemir 30 unit, 0.3 mL, Route: SUB-Q, Drug form: INJ, Q12H, Dosing Weight 104.545, kg, Start date: 01/10/16 21:00:00, Duration: 30 day, Stop date: 02/09/16 9:00:00 Notes: Same as LevemirDo not hold insulin without contacting prescriberWASTE: F/ P - Black; E - Municipal Trash Bin "single patient use only" Start Date: 01/10/16 Stop Date: 01/10/16 Status: Canceled insulin detemir 15 unit, 0.15 mL, Route: SUB-Q, Drug form: INJ, Q12H, Dosing Weight 104.545, kg, Start date: 01/02/16 15:59:00, Stop date: 02/01/16 9:00:00 Notes: Same as LevemirDo not hold insulin without contacting prescriberWASTE: F/ P - Black; E - Municipal Trash Bin "single patient use only" Start Date: 01/02/16 Stop Date: 01/09/16 Status: Discontinued insulin detemir 20 unit, 0.2 mL, Route: SUB-Q, Drug form: INJ, Q12H, Dosing Weight 104.545, kg, Start date: 01/09/16 21:00:00, Duration: 30 day, Stop date: 02/08/16 9:00:00 Notes: Same as LevemirDo not hold insulin without contacting prescriberWASTE: F/ P - Black; E - Municipal Trash Bin "single patient use only" Start Date: 01/09/16 Stop Date: 01/10/16 Status: Discontinued insulin detemir 100 units/mL subcutaneous solution 30 unit, SUB-Q, Q12H, 0 Refill(s) Start Date: 01/10/16 Status: Ordered Insulin regular 5 unit, 0.05 mL, Route: SUB-Q, Drug form: SOLN, PRN, Dosing Weight 104.545, kg, PRN Abnormal Lab Result, Start date: 01/02/16 16:00:00, Duration: 30 day, Stop d ate: 02/01/16 16:59:00, For FSBG 150 mg/dL - 174 mg/dL Notes: (Same as: Humulin R) Roll in palms of hands gently; Do not shake vigorou sly. "single patient use only"(Restricted to patients requiring a dose > 60 units)WASTE: F/P - Black; E - Municipal Trash Bin Stable for 28 days at room temperatureExpires in days from Date Start Date: 01/02/16 Stop Date: 01/10/16 Status: Discontinued Insulin regular 12 unit, 0.12 mL, Route: SUB-Q, Drug form: SOLN, PRN, Dosing Weight 104.545, kg, PRN Abnormal Lab Result, Start date: 01/02/16 16:00:00, Duration: 30 day, Stop date: 02/01/16 16:59:00, For FSBG >=200 mg/dL Notes: (Same as: Humulin R) Roll in palms of hands gently; Do not shake vigorou sly. "single patient use only"(Restricted to patients requiring a dose > 60 units)WASTE: F/P - Black; E - Municipal Trash Bin Stable for 28 days at room temperatureExpires in days from Date Start Date: 01/02/16 Stop Date: 01/10/16 Status: Discontinued Insulin regular 8 unit, 0.08 mL, Route: SUB-Q, Drug form: SOLN, PRN, Dosing Weight 104.545, kg, PRN Abnormal Lab Result, Start date: 01/02/16 16:00:00, Duration: 30 day, Stop d ate: 02/01/16 16:59:00, For FSBG 175 mg/dL - 199 mg/dL Notes: (Same as: Humulin R) Roll in palms of hands gently; Do not shake vigorou sly. "single patient use only"(Restricted to patients requiring a dose > 60 units)WASTE: F/P - Black; E - Municipal Trash Bin Stable for 28 days at room temperatureExpires in days from Date Start Date: 01/02/16 Stop Date: 01/10/16 Status: Discontinued Insulin regular 5 unit, 0.05 mL, Route: SUB-Q, Drug form: SOLN, PRN, kg, PRN Abnormal Lab Result , Start date: 12/28/15 21:47:00, Duration: 30 day, Stop date: 01/27/16 22:46:00, For FSBG 150 mg/dL - 174 mg/dL Notes: (Same as: Humulin R) Roll in palms of hands gently; Do not shake vigorou sly. "single patient use only"(Restricted to patients requiring a dose > 60 units)WASTE: F/P - Black; E - Municipal Trash Bin Stable for 28 days at room temperatureExpires in days from Date Start Date: 12/28/15 Stop Date: 01/01/16 Status: Discontinued Insulin regular 12 unit, 0.12 mL, Route: SUB-Q, Drug form: SOLN, PRN, kg, PRN Abnormal Lab Resul t, Start date: 12/28/15 21:47:00, Duration: 30 day, Stop date: 01/27/16 22:46:00 , For FSBG >=200 mg/dL Notes: (Same as: Humulin R) Roll in palms of hands gently; Do not shake vigorou sly. "single patient use only"(Restricted to patients requiring a dose > 60 units)WASTE: F/P - Black; E - Municipal Trash Bin Stable for 28 days at room temperatureExpires in days from Date Start Date: 12/28/15 Stop Date: 01/01/16 Status: Discontinued Insulin regular 8 unit, 0.08 mL, Route: SUB-Q, Drug form: SOLN, PRN, kg, PRN Abnormal Lab Result , Start date: 12/28/15 21:47:00, Duration: 30 day, Stop date: 01/27/16 22:46:00, For FSBG 175 mg/dL - 199 mg/dL Notes: (Same as: Humulin R) Roll in palms of hands gently; Do not shake chrisorou sly. "single patient use only"(Restricted to patients requiring a dose > 60 units)WASTE: F/P - Black; E - Municipal Trash Bin Stable for 28 days at room temperatureExpires in days from Date Start Date: 12/28/15 Stop Date: 01/01/16 Status: Discontinued Insulin regular 100 unit + Sodium Chloride 0.9% (titrate) 99 mL 99 mL, Rate: Start at 4 units/hr and Titrate, Dosing Weight 104.545, kg, Route: IVPB, Total Volume: 100, Start Date: 01/01/16 3:09:00, Duration: 30 day, Stop da te: 01/31/16 3:08:00, Replace Every: 24 hr Notes: (Same as: Humulin R and NovoLIN R)WASTE: F/P - Black; E - Municipal Trash Bin (Do not shake) Start Date: 01/01/16 Stop Date: 01/03/16 Status: Discontinued Isolyte S PH-7.4 (Bolus) IV 1,000 mL, 1000 ml/hr, Route: IV, Drug Form: SOLN, Dosing Weight 104.545, kg, ONC E, STAT, Start date: 01/04/16 11:31:00, Stop date: 01/04/16 11:31:00 Notes: (Same as: Isolyte S PH 7.4) Start Date: 01/04/16 Stop Date: 01/04/16 Status: Completed Janumet 50 mg/1000 mg oral tablet 1 tab, PO, BID, 0 Refill(s) Start Date: 01/01/16 Stop Date: 01/10/16 Status: Discontinued labetalol 10 mg, 2 mL, Route: IVP, Drug form: INJ, Q15Min, Dosing Weight 104.545, kg, PRN Hypertension, Start date: 12/30/15 15:56:00, Duration: 3 doses or times, Stop da te: Limited # of times Start Date: 12/30/15 Stop Date: 12/30/15 Status: Completed labetalol 100 mg, 1 tab, Route: PO, Drug form: TAB, Q12H, Dosing Weight 104.545, kg, Start date: 01/04/16 9:00:00, Duration: 30 day, Stop date: 02/02/16 21:00:00 Notes: With food. (Same as:Trandate, Normodyne) Start Date: 01/04/16 Stop Date: 01/06/16 Status: Discontinued labetalol 100 mg, 1 tab, Route: PO, Drug form: TAB, Q6H, Dosing Weight 104.545, kg, Start date: 01/06/16 13:00:00, Duration: 30 day, Stop date: 02/05/16 12:00:00 Notes: With food. (Same as:Trandate, Normodyne) Start Date: 01/06/16 Stop Date: 01/10/16 Status: Discontinued labetalol 10 mg, 2 mL, Route: IVP, Drug form: INJ, ONCE, kg, Start date: 12/28/15 23:23:00 , Stop date: 12/28/15 23:23:00 Start Date: 12/28/15 Stop Date: 12/28/15 Status: Completed labetalol 10 mg, 2 mL, Route: IVP, Drug form: INJ, ONCE, Dosing Weight 104.545, kg, Start date: 12/29/15 4:07:00, Stop date: 12/29/15 4:07:00, SBP >180 Start Date: 12/29/15 Stop Date: 12/29/15 Status: Completed labetalol 10 mg, Route: IVP, Drug form: INJ, [id number], Dosing Weight 104.545, kg, PRN, S tart date: 12/29/15 4:06:00, Stop date: 01/28/16 5:05:00, SBP >180 Start Date: 12/29/15 Stop Date: 12/29/15 Status: Discontinued labetalol 100 mg oral tablet 100 mg=1 tab, PO, Q6H, 0 Refill(s) Start Date: 01/10/16 Status: Ordered Lasix 40 mg, Route: PO, Drug form: TAB, Daily, Dosing Weight 104.545, kg, Start date: 01/02/16 15:57:00, Duration: 30 day, Stop date: 02/01/16 9:00:00 Start Date: 01/02/16 Stop Date: 01/02/16 Status: Discontinued Lasix 40 mg, 4 mL, Route: IVP, Drug form: INJ, Q8H, Dosing Weight 104.545, kg, Start d ate: 01/07/16 4:00:00, Duration: 2 doses or times, Stop date: 01/07/16 12:00:00 Notes: (Same as: Lasix) MEDICATION WASTE Product Size: 40 mgProduct Was odilon: ___ mg Start Date: 01/07/16 Stop Date: 01/07/16 Status: Completed Lasix 20 mg, 2 mL, Route: IV, Drug form: INJ, Q8Hnow, Dosing Weight 104.545, kg, Start date: 12/31/15 14:00:00, Duration: 3 doses or times, Stop date: 01/01/16 6:00:00 Notes: (Same as: Lasix) Start Date: 12/31/15 Stop Date: 01/01/16 Status: Completed Lasix 20 mg, 2 mL, Route: IV, Drug form: INJ, Q8H, Dosing Weight 104.545, kg, Start da te: 01/08/16 10:00:00, Duration: 3 doses or times, Stop date: 01/09/16 0:00:00 Notes: (Same as: Lasix) Start Date: 01/08/16 Stop Date: 01/09/16 Status: Completed Lasix 40 mg, 4 mL, Route: IV, Drug form: INJ, Q8Hnow, Dosing Weight 104.545, kg, Start date: 01/09/16 11:00:00, Stop date: 02/08/16 11:00:00 Notes: (Same as: Lasix) MEDICATION WASTE Product Size: 40 mgProduct Was odilon: ___ mg Start Date: 01/09/16 Stop Date: 01/10/16 Status: Discontinued Lasix 40 mg, 4 mL, Route: IVP, Drug form: INJ, Q8H, Dosing Weight 104.545, kg, Start d ate: 01/05/16 8:00:00, Duration: 3 doses or times, Stop date: 01/06/16 0:00:00 Notes: (Same as: Lasix) MEDICATION WASTE Product Size: 40 mgProduct Was odilon: ___ mg Start Date: 01/05/16 Stop Date: 01/06/16 Status: Completed Lasix 40 mg, 4 mL, Route: IVP, Drug form: INJ, Q8H, Dosing Weight 104.545, kg, Start d ate: 01/06/16 9:29:00, Duration: 1 day, Stop date: 01/07/16 4:00:00 Notes: (Same as: Lasix) MEDICATION WASTE Product Size: 40 mgProduct Was odilon: ___ mg Start Date: 01/06/16 Stop Date: 01/07/16 Status: Discontinued Lasix 40 mg, 4 mL, Route: IVP, Drug form: INJ, ONCE, Dosing Weight 104.545, kg, Priori ty: NOW, Start date: 12/30/15 23:03:00, Stop date: 12/30/15 23:03:00 Notes: (Same as: Lasix) Start Date: 12/30/15 Stop Date: 12/30/15 Status: Completed Levemir FlexPen 10 unit, 0.1 mL, Route: SUB-Q, Drug form: INJ, ONCE, Start date: 01/10/16 10:19: 00, Stop date: 01/10/16 10:19:00 Notes: Same as LevmichaelirDo not hold insulin without contacting prescriberWASTE: F/ P - Black; E - [facility] "single patient use only" Start Date: 01/10/16 Stop Date: 01/10/16 Status: Completed lidocaine 200 mg, 20 mL, Route: SUB-Q, Drug form: INJ, ONCE, Dosing Weight 104.545, kg, St art date: 01/09/16 14:49:00, Stop date: 01/09/16 14:49:00 Notes: (Same as: Xylocaine) Start Date: 01/09/16 Stop Date: 01/09/16 Status: Completed Lyrica 100 mg, 1 cap, Route: NG, Drug form: CAP, Q8H, Dosing Weight 104.545, kg, Start date: 12/30/15 16:00:00, Duration: 30 day, Stop date: 01/29/16 8:00:00 Notes: (Same as: Lyrica) Start Date: 12/30/15 Stop Date: 01/03/16 Status: Discontinued Lyrica 150 mg oral capsule 150 mg=1 cap, PO, BID, 0 Refill(s) Start Date: 01/01/16 Stop Date: 01/10/16 Status: Discontinued methadone 5 mg, 5 mL, Route: NG, Drug form: SOLN, Q8H, Dosing Weight 104.545, kg, Start da te: 12/30/15 12:00:00, Duration: 30 day, Stop date: 01/29/16 8:00:00 Notes: (Same as: Dolophine) Start Date: 12/30/15 Stop Date: 01/03/16 Status: Discontinued metoprolol tartrate 25 mg, 2 tab, Route: PO, Drug form: TAB, Q12H, Dosing Weight 104.545, kg, Start date: 12/29/15 9:00:00, Duration: 30 day, Stop date: 01/27/16 21:00:00 Notes: (Same as: Lopressor) 12.5mg=1/4 X 50 mg tab. Start Date: 12/29/15 Stop Date: 01/04/16 Status: Discontinued midazolam 4 mg, 4 mL, Route: IVP, Drug form: INJ, ONCALL, Dosing Weight 104.545, kg, Start date: 12/29/15 10:00:00, Duration: 1 doses or times Notes: (Same as: Versed) MEDICATION WASTE Product Size: 2 mgProduct Was odilon: ___ mg Start Date: 12/29/15 Stop Date: 12/29/15 Status: Completed midazolam 50 mg in NS 50 mL (Titrate.) IV 50 mg 50 mg, 50 mL, Rate: Titrate, Start Dose: 1 mg/hr, Titration: Rebolus 1 mg IV and /or Titrate by 1 milligram/hour every 30 minutes, Goal(s): RASS 0, Max Dose: 10 mg/hr, Route: IV, Total Volume: 50, Start date: 12/28/15 21:47:00, Duration: 30 day, Stop d... Notes: (Same as: Versed) Start Date: 12/28/15 Stop Date: 12/29/15 Status: Discontinued MiraLax 17 gm, 1 pkt, Route: PO, Drug form: PWDR, Daily, Dosing Weight 104.545, kg, Star t date: 12/31/15 9:00:00, Duration: 30 day, Stop date: 01/29/16 9:00:00 Notes: Dissolve in 8 oz of water or juice.(Same as: Miralax) Start Date: 12/31/15 Stop Date: 01/10/16 Status: Discontinued Mucomyst oral solution (mg) 800 mg, 4 mL, Route: INHALATION, Drug form: SOLN, RQ6H, Dosing Weight 104.545, k g, Start date: 01/02/16 18:00:00, Stop date: 02/01/16 14:00:00 Start Date: 01/02/16 Stop Date: 01/04/16 Status: Discontinued Neutra-Phos 1 pkt, Route: NG, Drug Form: PDR/REC, Dosing Weight 104.545, kg, Q8H, Start date : 12/30/15 12:00:00, Duration: 30 day, Stop date: 01/29/16 8:00:00 Notes: (Same as: Neutra-Phos) Each 1.25 gm pkt has 250mg phosphorous. Mix w/2.5 oz water and stir. Start Date: 12/30/15 Stop Date: 01/01/16 Status: Discontinued Norvasc 5 mg, 1 tab, Route: NG, Drug form: TAB, ONCE, Start date: 01/10/16 10:18:00, Sto p date: 01/10/16 10:18:00 Notes: (Same as: Norvasc) Start Date: 01/10/16 Stop Date: 01/10/16 Status: Completed Omnipaque 350mg/ml 100 mL, Route: IVP, Drug Form: SOLN, Dosing Weight 104.545, kg, ONCALL, STAT, St art date: 12/30/15 15:46:00, Duration: 1 doses or times, Dose=2.2ml/kg, Max dos f=130kx -- "To be infused by Radiology Staff ONLY" Notes: (Same as:Omnipaque 350).WASTE: F/P - Black; E - Municipal Trash Bin Start Date: 12/30/15 Stop Date: 12/30/15 Status: Completed oxyCODONE 5 mg immediate release 5 mg, 1 tab, Route: NG, Drug form: TAB, Q6H, Dosing Weight 104.545, kg, Start da te: 01/10/16 12:00:00, Duration: 30 day, Stop date: 02/09/16 6:00:00 Notes: (Same as: Roxicodone) Start Date: 01/10/16 Stop Date: 01/10/16 Status: Discontinued oxyCODONE 5 mg immediate release 5 mg, 1 tab, Route: PO, Drug form: TAB, Q6H, Dosing Weight 104.545, kg, PRN Pain Score 7-10, Start date: 01/05/16 7:55:00, Duration: 30 day, Stop date: 02/04/16 7:54:00 Notes: (Same as: Roxicodone) Start Date: 01/05/16 Stop Date: 01/05/16 Status: Discontinued oxyCODONE 5 mg immediate release 10 mg, 2 tab, Route: PO, Drug form: TAB, Q6H, Dosing Weight 104.545, kg, Start d ate: 01/05/16 14:12:00, Duration: 30 day, Stop date: 02/04/16 12:00:00 Notes: (Same as: Roxicodone) Start Date: 01/05/16 Stop Date: 01/10/16 Status: Discontinued oxyCODONE 5 mg immediate release 10 mg, 2 tab, Route: PO, Drug form: TAB, Q6H, Dosing Weight 104.545, kg, PRN Natan n Score 7-10, Start date: 01/05/16 15:00:00, Duration: 30 day, Stop date: 14:59:00 Notes: (Same as: Roxicodone) Start Date: 01/05/16 Stop Date: 01/10/16 Status: Discontinued oxyCODONE 5 mg immediate release 5 mg, 1 tab, Route: NG, Drug form: TAB, Q6H, Dosing Weight 104.545, kg, PRN Pain Score 7-10, Start date: 01/10/16 10:14:00, Duration: 30 day, Stop date: 02/09/16 10:13:00 Notes: (Same as: Roxicodone) Start Date: 01/10/16 Stop Date: 01/10/16 Status: Discontinued Peridex 0.12% topical liquid 15 ml, Route: S&SPIT, BID, Drug form: LIQ, Start date: 01/04/16 9:00:00, Duration: 30 day, Stop date: 02/02/16 17:00:00 Notes: (Same As: Peridex) Start Date: 01/04/16 Stop Date: 01/10/16 Status: Discontinued polyethylene glycol 3350 PO, Daily, 0 Refill(s) Start Date: 01/10/16 Status: Ordered potassium chloride 20 mEq/15 mL oral liquid 60 mEq, 45 mL, Route: PO, Drug form: LIQ, ONCE, Dosing Weight 104.545, kg, Start date: 01/09/16 10:38:00, Stop date: 01/09/16 10:38:00 Notes: (Same as: Potassium Chloride) Start Date: 01/09/16 Stop Date: 01/09/16 Status: Completed potassium phosphate + Sodium Chloride 0.9% IV 250 mL 30 mmol, 10 mL, Route: IVPB, ONCE, Dosing Weight 104.545, kg, Start date: 4:49:00, Stop date: 12/31/15 4:49:00 Notes: (Same as: K Phosphate.) 1 mMol phoshate has 1.47 mEq potassium Infuse o constantine 4 hours Start Date: 12/31/15 Stop Date: 12/31/15 Status: Completed potassium phosphate + Sodium Chloride 0.9% IV 250 mL 30 mmol, 10 mL, Route: IVPB, ONCE, Dosing Weight 104.545, kg, Start date: 2:57:00, Stop date: 01/09/16 2:57:00 Notes: (Same as: K Phosphate.) 1 mMol phoshate has 1.47 mEq potassium Infuse o constantine 4 hours Start Date: 01/09/16 Stop Date: 01/09/16 Status: Completed potassium phosphate + Sodium Chloride 0.9% IV 250 mL 36 mmol, 12 mL, Route: IVPB, ONCE, Dosing Weight 104.545, kg, Start date: 11:22:00, Stop date: 12/29/15 11:22:00 Notes: (Same as: K Phosphate.) 1 mMol phoshate has 1.47 mEq potassium Infuse o constantine 4 hours Start Date: 12/29/15 Stop Date: 12/29/15 Status: Completed potassium phosphate + Sodium Chloride 0.9% IV 250 mL 30 mmol, 10 mL, Route: IVPB, ONCE, Dosing Weight 104.545, kg, Start date: 4:53:00, Stop date: 12/30/15 4:53:00 Notes: (Same as: K Phosphate.) 1 mMol phoshate has 1.47 mEq potassium Infuse o constantine 4 hours Start Date: 12/30/15 Stop Date: 12/30/15 Status: Completed Precedex 400 microgram in NS 100 mL (Titrate.) IV 400 microgram 400 microgram, 100 mL, Rate: Titrate, Start Dose: 0.2 microgram/kg/hr, Titration : 0.1 microgram/kg/hr every 30 min, Goal(s): RASS (0) to (-2), Max Dose: 1.5 pito rogram/kg/hr, Route: IV, Dosing Weight 104.545 kg, Total Volume: 100, Start date : 12/29/15... Notes: (Same as: Precedex) Start Date: 12/29/15 Stop Date: 12/30/15 Status: Discontinued Precedex 400 microgram in NS 100 mL (Titrate.) IV 400 microgram + Sodium Chlorid e 0.9% IV 96 mL 400 microgram, 4 mL, Rate: Titrate, Start Dose: 0.2 microgram/kg/hr, Titration: 0.1 microgram/kg/hr every 30 min, Goal(s): RASS (0) to (-2), Max Dose: 1.5 micro gram/kg/hr, Route: IV, Dosing Weight 104.545 kg, Total Volume: 100, Start date: 12/30/15 18... 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 administration, Dosing Weight 1 04.545, kg, Route: IV, Total Volume: 250, Start Date: 12/31/15 18:06:00, Duratio n: 30 day, Stop date: 01/30/16 18:05:00, Replace Every: 24 hr Start Date: 12/31/15 Stop Date: 01/05/16 Status: Discontinued Sodium Chloride 3% inhalation solution 3 mL, Route: NEB, Drug Form: SOLN, Dosing Weight 104.545, kg, RQ6H, Start date: 01/05/16 2:00:00, Stop date: 02/03/16 20:00:00 Notes: SEE RT DOCUMENTATION (Same as: Hypertonic Saline 3%, Inhalation) Start Date: 01/05/16 Stop Date: 01/10/16 Status: Discontinued sterile water 950 mL + Dextrose 50% in Water IV 25 gm 950 mL, 125 ml/hr, Route: IV, Drug Form: INJ, Dosing Weight 104.545, kg, Start d ate: 01/06/16 11:10:00, Stop date: 02/05/16 11:09:00 Start Date: 01/06/16 Stop Date: 01/07/16 Status: Discontinued terazosin 2 mg oral capsule 2 mg=1 cap, PO, Bedtime, 0 Refill(s) Start Date: 01/01/16 Stop Date: 01/10/16 Status: Discontinued tramadol 50 mg, 1 tab, Route: PO, Drug form: TAB, Q6H, Dosing Weight 104.545, kg, Start d ate: 12/30/15 6:00:00, Duration: 30 day, Stop date: 01/29/16 0:00:00 Notes: Not to exceed 400mg/day. (Same As: Ultram) Start Date: 12/30/15 Stop Date: 01/05/16 Status: Discontinued tramadol 50 mg, PO, Q4-6H, PRN Pain, # 20 tab, 0 Refill(s) Start Date: 01/01/16 Stop Date: 01/10/16 Status: Discontinued tramadol 100 mg, 2 tab, Route: PO, Drug form: TAB, Q6H, Dosing Weight 104.545, kg, Start date: 01/05/16 18:00:00, Duration: 30 day, Stop date: 02/04/16 12:00:00 Notes: Not to exceed 400mg/day. (Same As: Ultram) Start Date: 01/05/16 Stop Date: 01/10/16 Status: Discontinued tramadol 50 mg oral tablet 100 mg=2 tab, PO, Q6H, 0 Refill(s) Start Date: 01/10/16 Status: Ordered tramadol 50 mg oral tablet 50 mg=1 tab, PO, Q4H, 0 Refill(s) Start Date: 01/01/16 Stop Date: 01/10/16 Status: Discontinued Unasyn 3 gm, 1 ea, Route: IV, Drug form: PDR/INJ, ABXQ6H, Dosing Weight 104.545, kg, St art date: 01/06/16 11:00:00, Duration: 30 day, Stop date: 02/05/16 5:00:00 Notes: Dosing based on Ampicillin component (Same as: Unasyn) Start Date: 01/06/16 Stop Date: 01/10/16 Status: Discontinued Unasyn 3 gm, 1 ea, Route: IV, Drug form: PDR/INJ, ABXQ8H, Dosing Weight 104.545, kg, Pr iority: NOW, Start date: 01/03/16 10:49:00, Duration: 30 day, Stop date: 6 4:00:00 Notes: Dosing based on Ampicillin component (Same as: Unasyn) Start Date: 01/03/16 Stop Date: 01/06/16 Status: Discontinued vecuronium bolus dose 10 mg, Route: IVP, Drug form: PDR/INJ, ONCALL, Dosing Weight 104.545, kg, Start date: 12/29/15 10:00:00, Duration: 1 doses or times Notes: (Same As: Norcuron) Start Date: 12/29/15 Stop Date: 12/29/15 Status: Completed Versed 5 mg, 5 mL, Route: IV, Drug form: INJ, ONCE, Dosing Weight 104.545, kg, Start da te: 12/30/15 17:07:00, Stop date: 12/30/15 17:07:00 Notes: (Same as: Versed) MEDICATION WASTE Product Size: 2 mgProduct Was odilon: _1__ mg Start Date: 12/30/15 Stop Date: 12/30/15 Status: Completed Versed 5 mg, 5 mL, Route: IVP, Drug form: INJ, ONCE, Dosing Weight 104.545, kg, Start d ate: 12/30/15 15:57:00, Stop date: 12/30/15 15:57:00 Notes: (Same as: Versed) MEDICATION WASTE Product Size: 2 mgProduct Was odilon: __1_ mg Start Date: 12/30/15 Stop Date: 12/30/15 Status: Completed Visipaque 320mg/ml 95 mL, Route: IVP, Drug Form: SOLN, Dosing Weight 104.545, kg, ONCALL, STAT, Sta rt date: 01/04/16 11:34:00, Duration: 1 doses or times, Stop date: 01/05/16 0:00 :00, Dose=2.2ml/kg, Max tsii=[id number] -- "To be infused by Radiology Staff ONLY" Notes: (Same as: Visipaque).WASTE: F/P - Black; E - Municipal Trash Bin Start Date: 01/04/16 Stop Date: 01/04/16 Status: Completed Visipaque 320mg/ml 125 mL, Route: IVP, Drug Form: SOLN, Dosing Weight 104.545, kg, ONCALL, STAT, St art date: 12/29/15 2:47:00, Duration: 1 doses or times, Dose=2.2ml/kg, Max dose =150ml -- "To be infused by Radiology Staff ONLY" Start Date: 12/29/15 Stop Date: 12/29/15 Status: Completed warfarin 3 mg oral tablet 3 mg=1 tab, PO, TID, 0 Refill(s) Start Date: 01/01/16 Stop Date: 01/10/16 Status: Discontinued Results BLOOD BANK RESULTS 1 2 3 Most recent to oldest [Reference Range]: O POS *Unknown* (01/06/16 12:52 AM) O POS *Unknown* (01/01/16 12:04 AM) O POS *Unknown* (12/28/15 9:53 PM) ABO/Rh Negative (01/06/16 12:52 AM) Negative (01/01/16 12:04 AM) Negative (12/28/15 9:53 PM) Antibody Scrn Modification Required (12/31/15 7:41 PM) Product available (12/31/15 6:06 PM) FFP product ELECTROLYTES 1 2 3 Most recent to oldest [Reference Range]: 160 mEq/L 1 *CRIT* (01/10/16 12:34 AM) 160 mEq/L 2 *CRIT* (01/09/16 12:23 AM) 158 mEq/L *HI* (01/08/16 12:02 AM) Sodium Lvl [135-145 mEq/L] 3.7 mEq/L (01/10/16 12:34 AM) 3.3 mEq/L *LOW* (01/09/16 12:23 AM) 3.4 mEq/L *LOW* (01/08/16 12:02 AM) Potassium Lvl [3.5-5.1 mEq/L] 123 mEq/L *HI* (01/10/16 12:34 AM) 123 mEq/L *HI* (01/09/16 12:23 AM) 121 mEq/L *HI* (01/08/16 12:02 AM) Chloride Lvl [95-109 mEq/L] 31 mEq/L (01/10/16 12:34 AM) 30 mEq/L (01/09/16 12:23 AM) 29 mEq/L (01/08/16 12:02 AM) CO2 [24-32 mEq/L] 9.7 mEq/L *LOW* (01/10/16 12:34 AM) 10.3 mEq/L (01/09/16 12:23 AM) 11.4 mEq/L (01/08/16 12:02 AM) AGAP [10.0-20.0 mEq/L] 1Result Comment: Critical Result(s) called to geno jain at 01/10/2016 01:30 by ko. Read back OK. 2Result Comment: Critical Result(s) called to ayesha Wilson at 01/09/2016 01:22 byCF. Read back OK. CHEM PANEL 1 2 3 Most recent to oldest [Reference Range]: 1.05 mg/dL (01/10/16 12:34 AM) 1.05 mg/dL (01/09/16 12:23 AM) 1.31 mg/dL (01/08/16 12:02 AM) Creatinine Lvl [0.50-1.40 mg/dL] 86 mL/min/1.73m2 1 *NA* (01/10/16 12:34 AM) 86 mL/min/1.73m2 2 *NA* (01/09/16 12:23 AM) 66 mL/min/1.73m2 3 *NA* (01/08/16 12:02 AM) eGFR 36 mg/dL *HI* (01/10/16 12:34 AM) 41 mg/dL *HI* (01/09/16 12:23 AM) 51 mg/dL *HI* (01/08/16 12:02 AM) BUN [7-22 mg/dL] 33 *HI* (12/28/15 9:53 PM) B/C Ratio [6-25] 180 mg/dL *HI* (01/10/16:34 AM) 197 mg/dL *HI* (01/09/16 12:23 AM) 225 mg/dL *HI* (01/08/16 12:02 AM) Glucose Lvl [70-99 mg/dL] 6.7 g/dL (01/02/16 10:58 AM) 6.5 g/dL (01/01/16 10:55 AM) 6.4 g/dL (12/30/15 12:02 AM) Total Protein [6.4-8.4 g/dL] 2.0 g/dL *LOW* (01/02/16 10:58 AM) 2.0 g/dL *LOW* (01/01/16 10:55 AM) 2.1 g/dL *LOW* (12/30/15 12:02 AM) Albumin Lvl [3.5-5.0 g/dL] 4.7 g/dL *HI* (01/02/16 10:58 AM) 4.5 g/dL *HI* (01/01/16 10:55 AM) 4.3 g/dL *HI* (12/30/15 12:02 AM) Globulin [2.0-4.0 g/dL] 0.4 *LOW* (01/02/16 10:58 AM) 0.4 *LOW* (01/01/16 10:55 AM) 0.5 *LOW* (12/30/15 12:02 AM) A/G Ratio [0.7-1.6] 8.6 mg/dL (01/10/16 12:34 AM) 8.0 mg/dL *LOW* (01/09/16 12:23 AM) 8.4 mg/dL *LOW* (01/08/16 12:02 AM) Calcium Lvl [8.5-10.5 mg/dL] 2.5 mg/dL (01/10/16 12:34 AM) 2.2 mg/dL *LOW* (01/09/16 12:23 AM) 3.0 mg/dL (01/08/16 12:02 AM) Phosphorus [2.5-4.5 mg/dL] 2.7 mg/dL *HI* (01/10/16 12:34 AM) 2.8 mg/dL *HI* (01/09/16 12:23 AM) 2.8 mg/dL *HI* (01/08/16 12:02 AM) Magnesium Lvl [1.8-2.4 mg/dL] 19 unit/L (01/02/16 10:58 AM) 24 unit/L (01/01/16 10:55 AM) 23 unit/L (12/30/15 12:02 AM) ALT [0-65 unit/L] 27 unit/L (01/02/16 10:58 AM) 28 unit/L (01/01/16 10:55 AM) 27 unit/L (12/30/15 12:02 AM) AST [0-37 unit/L] 65 unit/L (01/02/16 10:58 AM) 64 unit/L (01/01/16 10:55 AM) 72 unit/L (12/30/15 12:02 AM) Alk Phos [39-136 unit/L] 0.6 mg/dL (01/02/16 10:58 AM) 0.6 mg/dL (01/01/16 10:55 AM) 0.8 mg/dL (12/30/15 12:02 AM) Bili Total [0.2-1.3 mg/dL] 0.2 mg/dL (01/02/16 10:58 AM) 0.3 mg/dL (01/01/16 10:55 AM) 0.4 mg/dL *HI* (12/30/15 12:02 AM) Bili Direct [0.0-0.3 mg/dL] 0.4 mg/dL (01/02/16 10:58 AM) 0.3 mg/dL (01/01/16 10:55 AM) 0.4 mg/dL (12/30/15 12:02 AM) Bili Indirect [0.0-1.0 mg/dL] 23.0 uMol/L (12/30/15 8:15 PM) 34.0 uMol/L (12/28/15 9:53 PM) Ammonia [<=45.0 uMol/L] 0.8 mMol/L (12/28/15 9:53 PM) Lactic Acid Lvl [0.5-2.2 mMol/L] 1Result Comment: The eGFR is calculated using [...] be mul tiplied by the estimated BMI. 2Result Comment: The eGFR is calculated using the [...] be mul tiplied by the estimated BMI. 3Result Comment: The eGFR is calculated using the [...] be mul tiplied by the estimated BMI. PARATHYROID PROFILE 1 2 3 Most recent to oldest [Reference Range]: 1.10 mMol/L (12/31/15 1:51 PM) 1.13 mMol/L (12/28/15 9:53 PM) Ca Ion WB [1.05-1.25 mMol/L] 1.12 mMol/L (12/31/15 1:51 PM) 1.08 mMol/L (12/28/15 9:53 PM) Ca Norm WB [1.05-1.25 mMol/L] URINE CHEM 1 2 3 Most recent to oldest [Reference Range]: 56.90 mg/dL *NA* (01/04/16 11:08 AM) U Creatinine 47 mEq/L *NA* (01/04/16 11:08 AM) U Sodium 574 mOsm/kg (01/04/16 11:08 AM) U Osmolality [300-800 mOsm/kg] URINE AND STOOL 1 2 3 Most recent to oldest [Reference Range]: Clear (12/28/15 9:53 PM) UA Turbidity [Clear] Yellow *NA* (12/28/15 9:53 PM) UA Color [Yellow] 5.5 (12/28/15 9:53 PM) UA pH [5.0-8.0] 1.033 *HI* (12/28/15 9:53 PM) UA Spec Grav [<=1.030] Negative mg/dL *NA* (12/28/15 9:53 PM) UA Glucose [Negative mg/dL] Trace *ABN* (12/28/15 9:53 PM) UA Blood [Negative] Negative mg/dL *NA* (12/28/15 9:53 PM) UA Ketones [Negative mg/dL] 30 mg/dL *ABN* (12/28/15 9:53 PM) UA Protein [Negative mg/dL] 2.0 mg/dL *HI* (12/28/15 9:53 PM) UA Urobilinogen [0.1-1.0 mg/dL] Negative *NA* (12/28/15 9:53 PM) UA Bili [Negative] Negative (12/28/15 9:53 PM) UA Leuk Est [Negative] Negative (12/28/15 9:53 PM) UA Nitrite [Negative] 2 /HPF (12/28/15 9:53 PM) UA WBC [0-5 /HPF] 4 /HPF *HI* (12/28/15 9:53 PM) UA RBC [0-2 /HPF] None Seen *NA* (12/28/15 9:53 PM) UA Sq Epi Few /LPF *NA* (12/28/15 9:53 PM) UA Mucus [None Seen /LPF] IMMUNOLOGY 1 2 3 Most recent to oldest [Reference Range]: 13.2 mg/dL *LOW* (01/05/16 11:59 PM) 7.7 mg/dL *LOW* (12/28/15 9:53 PM) Prealbumin [18.0-45.0 mg/dL] 160.0 mg/L *HI* (01/05/16 11:59 PM) 208.0 mg/L *HI* (12/28/15 9:53 PM) CRP [<=2.9 mg/L] HEMATOLOGY 1 2 3 Most recent to oldest [Reference Range]: 10.5 K/CMM *HI* (01/10/16 12:34 AM) 10.2 K/CMM (01/09/16 12:23 AM) 11.5 K/CMM *HI* (01/08/16 12:02 AM) WBC [3.7-10.4 K/CMM] 2.37 M/CMM *LOW* (01/10/16 12:34 AM) 2.28 M/CMM *LOW* (01/09/16 12:23 AM) 2.39 M/CMM *LOW* (01/08/16 12:02 AM) RBC [4.70-6.10 M/CMM] 6.6 g/dL 1 *CRIT* (01/10/16:34 AM) 6.4 g/dL 2 *CRIT* (01/09/16:23 AM) 6.5 g/dL 3 *CRIT* (01/08/16 12:02 AM) Hgb [14.0-18.0 g/dL] 21.4 % *LOW* (01/10/16:34 AM) 20.3 % *LOW* (01/09/16:23 AM) 21.4 % *LOW* (01/08/16 12:02 AM) Hct [42.0-54.0 %] 90.2 fL (01/10/16:34 AM) 89.1 fL (01/09/16 12:23 AM) 89.3 fL (01/08/16 12:02 AM) MCV [80.0-94.0 fL] 27.7 pg (01/10/16:34 AM) 27.9 pg (01/09/16 12:23 AM) 27.2 pg (01/08/16 12:02 AM) MCH [27.0-31.0 pg] 30.7 g/dL *LOW* (01/10/16:34 AM) 31.4 g/dL *LOW* (01/09/16 12:23 AM) 30.5 g/dL *LOW* (01/08/16 12:02 AM) MCHC [32.0-36.0 g/dL] 17.1 % *HI* (01/10/16 12:34 AM) 16.4 % *HI* (01/09/16 12:23 AM) 16.1 % *HI* (01/08/16 12:02 AM) RDW [11.5-14.5 %] 197 K/CMM (01/10/16 12:34 AM) 198 K/CMM (01/09/16 12:23 AM) 218 K/CMM (01/08/16 12:02 AM) Platelet [133-450 K/CMM] 9.4 fL (01/10/16 12:34 AM) 9.2 fL (01/09/16 12:23 AM) 9.6 fL (01/08/16 12:02 AM) MPV [7.4-10.4 fL] 80.3 % *HI* (01/10/16 12:34 AM) 83.4 % *HI* (01/09/16 12:23 AM) 84.9 % *HI* (01/08/16 12:02 AM) Segs [45.0-75.0 %] 3.0 % (12/30/15 12:02 AM) 2.0 % (12/29/15 3:45 PM) 1.0 % (12/29/15 8:27 AM) Bands [0.0-11.0 %] 12.3 % *LOW* (01/10/16:34 AM) 10.2 % *LOW* (01/09/16 12:23 AM) 9.3 % *LOW* (01/08/16 12:02 AM) Lymphocytes [20.0-40.0 %] 0.0 % (12/30/15 12:02 AM) 0.0 % (12/29/15 3:45 PM) 0.0 % (12/29/15 8:27 AM) Atypical Lymphs [<=0.0 %] 4.5 % (01/10/16 12:34 AM) 4.0 % (01/09/16 12:23 AM) 3.9 % (01/08/16 12:02 AM) Monocytes [2.0-12.0 %] 2.7 % (01/10/16 12:34 AM) 1.8 % (01/09/16 12:23 AM) 1.4 % (01/08/16 12:02 AM) Eosinophils [0.0-4.0 %] 0.2 % (01/10/16 12:34 AM) 0.6 % (01/09/16 12:23 AM) 0.5 % (01/08/16 12:02 AM) Basophils [0.0-1.0 %] 1.0 % (12/29/15 3:45 PM) 2.0 % *HI* (12/29/15 8:27 AM) Metamyelocytes [0.0-1.0 %] 1.0 % *HI* (12/29/15 3:45 PM) 1.0 % *HI* (12/29/15 8:27 AM) Myelocytes [<=0.0 %] 8.4 K/CMM *HI* (01/10/16 12:34 AM) 8.5 K/CMM *HI* (01/09/16 12:23 AM) 9.8 K/CMM *HI* (01/08/16 12:02 AM) Segs-Bands # [1.5-8.1 K/CMM] 1.3 K/CMM (01/10/16 12:34 AM) 1.0 K/CMM (01/09/16 12:23 AM) 1.1 K/CMM (01/08/16 12:02 AM) Lymphocytes # [1.0-5.5 K/CMM] 0.5 K/CMM (01/10/16 12:34 AM) 0.4 K/CMM (01/09/16 12:23 AM) 0.4 K/CMM (01/08/16 12:02 AM) Monocytes # [0.0-0.8 K/CMM] 0.3 K/CMM (01/10/16 12:34 AM) 0.2 K/CMM (01/09/16 12:23 AM) 0.2 K/CMM (01/08/16 12:02 AM) Eosinophils # [0.0-0.5 K/CMM] 0.1 K/CMM (01/09/16 12:23 AM) 0.1 K/CMM (01/08/16 12:02 AM) 0.1 K/CMM (01/07/16 12:11 AM) Basophils # [0.0-0.2 K/CMM] 1+ *ABN* (12/30/15 12:02 AM) 1+ *ABN* (12/29/15 8:27 AM) Anisocyte [None Seen] slight *Unknown* (12/30/15 12:02 AM) Polychrom 1+ (12/30/15 12:02 AM) Hypochrom [None Seen] Normal (12/30/15 12:02 AM) Normal (12/29/15 8:27 AM) Plt Morph 16.8 seconds *HI* (01/02/16 10:58 AM) 19.6 seconds *HI* (01/01/16 10:55 AM) 15.9 seconds *HI* (12/28/15 9:53 PM) PT [12.0-14.7 seconds] 1.33 *HI* (01/02/16 10:58 AM) 1.62 *HI* (01/01/16 10:55 AM) 1.24 *HI* (12/28/15 9:53 PM) INR [0.85-1.17] 47.1 seconds *HI* (12/28/15 9:53 PM) PTT [22.9-35.8 seconds] 0.48 IU/mL *NA* (01/08/16 9:17 AM) 0.22 IU/mL *NA* (01/01/16 7:40 PM) Anti-Xa Low Molecular Heparin Citrated Whole Blood (01/06/16 12:52 AM) Citrated Whole Blood (01/01/16 12:02 AM) Citrated Whole Blood (12/31/15 1:51 PM) Rapid TEG Sample Type 136 seconds *HI* (01/06/16 12:52 AM) 105 seconds (01/01/16 12:02 AM) 183 seconds *HI* (12/31/15 1:51 PM) ACT (TEG) [86-118 seconds] 0.8 minutes *NA* (01/06/16 12:52 AM) 0.5 minutes *NA* (01/01/16 12:02 AM) 1.2 minutes *NA* (12/31/15 1:51 PM) Split Point 0.9 minutes *HI* (01/06/16 12:52 AM) 0.6 minutes (01/01/16 12:02 AM) 1.4 minutes *HI* (12/31/15 1:51 PM) R-time [0.4-0.7 minutes] 1.0 minutes (01/06/16 12:52 AM) 0.8 minutes (01/01/16 12:02 AM) 1.0 minutes (12/31/15 1:51 PM) K-time [0.6-2.3 minutes] 79 degrees (01/06/16 12:52 AM) 82 degrees *HI* (01/01/16 12:02 AM) 76 degrees (12/31/15 1:51 PM) Angle [64-80 degrees] 76 mm *HI* (01/06/16 12:52 AM) 73 mm *HI* (01/01/16 12:02 AM) 75 mm *HI* (12/31/15 1:51 PM) Max Amp [52-71 mm] 16.0 K d/sc *HI* (01/06/16 12:52 AM) 13.4 K d/sc *HI* (01/01/16 12:02 AM) 14.8 K d/sc *HI* (12/31/15 1:51 PM) G-value [5.0-11.6 K d/sc] 0.2 % (01/06/16 12:52 AM) 0.0 % (01/01/16 12:02 AM) 0.0 % (12/31/15 1:51 PM) Estimated % Lysis [0.0-7.5 %] 0.0 % (12/28/15 9:53 PM) Ly30 [0.0-7.5 %] 2.0 (12/28/15 9:53 PM) Coag Index [-3.0-3.0] Thrombelastograph results show increased value of Angle Alpha. This finding is suggestive of increased level of fibrinogen. CPT:95659 *NA* (12/28/15 9:53 PM) TEG Interp See Note (12/28/15 9:53 PM) TEG Data 1.25 *HI* (01/06/16 9:47 AM) dRVV Ratio [<=1.20] Positive (01/06/16 9:47 AM) Hex Phos N [Negative] Positive for lupus anticoagulant with all tests performed (dRVVT, and hexagonal phospholipid neutralization). Thrombin Time is normal (17.2 sec) which rules out heparin as interference substance. CPT: 33542 *NA* (01/06/16 9:47 AM) Lup Interp 1Result Comment: Critical Result(s) called to Mavis Johnstongreg_ at 01/10/2016 01:17_ by RM_. Read back OK. [place] Comment: Critical Result(s) called to Lisa Frost at 01/09/2016 01:07_ by RM_. Read back OK. [facility] Comment: Critical Result(s) called to [place] at 01/08/2016 01:15 by chip. Read back OK. Immunizations No data available for this section Procedures Procedure Date Related Diagnosis Body Site Cervical discectomy1 Spinal fusion2 [id number] Social History Social History Type Response Alcohol Current, Type Beer, Wine, Liquor. Frequency: Daily. Started age 21 Years. Stopped age 64 Years. Alcohol use interferes with work or home: No. Drinks more than intended: No. Others hurt by drinking: No. Ready to change: No. Household alcohol concerns: No.1 Smoking Status Never smoker; Exposure to Tobacco Smoke None; Cigarette Smoking Last 365 Days No; Reg Smoking Cessation Counseling No 1Pt was heavy drinker prior Assessment and Plan Extracted from: Title: [facility] Progress Note Author: Iesha Dai MD Date: 01/10/16 [facility] Daily Progress Note: Today's Date: 01/09/2016 Chief Complaint: Retained Hemothorax, Acute Respiratry Failure Overnight Events: No acute events overnight. In Hospital Operations: 12/31 Right posterolateral thoracotomy with evacuation of hemothorax and pleural decortication 01/06 Alex/PEG Daily Events: 12/28: accepted to [facility] as transfer from [facility] ([place]) 12/31: restarted cardene drip 12/31: VATS, CT placement x 3 01/05: all chest tubes removed Vitals and Temp: VitalsTmp(F)Tmp(C)[id number] 01/09 13:[id number]------ 01/09 12:53 40%--- 01/09 12:00 [id number]------ 01/09 11:00 140/66---[id number]------ 01/09 10:48 98 40%--- 24 Hr Tmax: 99.4F (37.44c) at 01/09 09:0024 Hr Tmin: 97.9F (36.61c) at 01/08 21:00 36 Hr Tmax: 99.4F (37.44c) at 01/09 09:0036 Hr Tmin: 97.9F (36.61c) at 01/08 21:00 Vital Signs are the last 5 in the past 48 hours. Weights are the last 5 in 60 days, plus initial. Scheduled Meds (15): 01/07/16 acetaminophen 1,000 mg NG Q6H 01/11/16 amLODIPine 10 mg PEG Daily 12/28/15 aspirin 81 mg PO Q24H 01/01/16 bacitracin topical 1 appl TOP Daily 01/04/16 chlorhexidine topical (Peridex 0.12% topical liquid) 15 ml S&SPIT BID 12/29/15 docusate (docusate sodium 150 mg/15 mL oral liquid) 100 mg PO BID 01/09/16 enoxaparin 30 mg SUB-Q [id number] 01/09/16 furosemide (Lasix) 40 mg IV Q8Hnow 01/08/16 gabapentin 600 mg PEG Q8H 01/10/16 insulin detemir 30 unit SUB-Q Q12H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
[2019-04-01] MEDS ORDERED: ASPIRIN 81 MG CHEW TAB PO ONE (10:15)
--- NOTE | 2019-04-01 10:29 | NUR ---
VERBAL ORDER FOR PATTERSON PER DR BELTRAN. 16 FR PATTERSON PLACED PER STERILE PROCEDURE PER PROTOCOL PROCESS FOLLOWED. AMMENDED CHART NOTED 09/02/2019 0746
--- NOTE | 2019-04-01 11:01 | NUR ---
NOTIFIED [facility] TO INITIATE TRANSFER FOR A HIGH LEVEL OF CARE.
--- NOTE | 2019-04-01 11:10 | NUR ---
REPORT TO RUFINO MADRID
[2019-04-01 11:13] LABS: BASOPHILS % 0.3 % (0.0-1.0); EOSINOPHILS # (AUTO) 0.1 (0.0-0.4); EOSINOPHILS % 1.7 % (0.0-6.0); HEMATOCRIT 33.8 % (38.2-49.6); HEMOGLOBIN 10.4 g/dL (14.0-18.0); LYMPHOCYTES # (AUTO) 0.8 (1.0-3.2); LYMPHOCYTES % 10.2 % (18.0-39.1); MEAN CORPUSCULAR HEMOGLOBIN 29.5 pg (28-32); MEAN CORPUSCULAR HGB CONC 30.8 g/dL (31-35); MONOCYTES # (AUTO) 0.4 (0.2-0.8); MONOCYTES % 5.9 % (4.4-11.3); NEUTROPHILS # (AUTO) 6.1 (2.1-6.9); NEUTROPHILS % 81.5 % (38.7-80.0); PLATELET COUNT 133 x10e3/uL (140-360); RED BLOOD COUNT 3.52 x10e6/uL (4.3-5.7); RED CELL DISTRIBUTION WIDTH 17.1 % (11.7-14.4)
[2019-04-01] MEDS ORDERED: PHYTONADIONE 10MG/ML 2 ML ONE (11:19)
--- NOTE | 2019-04-01 11:20 | NUR ---
VIT K 20MG GIVEN SQ BY JULIUS
--- NOTE | 2019-04-01 11:22 | Diagnostic Imaging Report ---
ADDENDUM #1 Evaluation of the lower thoracic spine is severely limited by motion artifacts. Recommend correlation to determine the need for possible directed repeat imaging 04/01/2019 at 1:19 PM Signed by: Dr. Veronica Webster M.D. on 04/01/2019 1:19 PM ORIGINAL REPORT Exam: Noncontrast Head CT History: Altered mental status, stroke protocol 68-year-old male Comparison studies: No images are available for comparison at the time of dictation. Reports for brain MRI dated 11/06/[address] dated 10/31/2016 are available. Technique: Axial images were obtained from the skull base to the vertex. Coronal and sagittal reconstructions obtained from the axial data. Dose modulation, iterative reconstruction, and/or weight based adjustment of the mA/kV was utilized to reduce the radiation dose to as low as reasonably achievable. Findings: Scalp/skull: No abnormalities. No fractures, blastic or lytic lesions. Extra-axial spaces: Large intermediate density left hemispheric subdural hematoma measuring up to 2.5 cm in greatest thickness. There is focal hyperdensity abutting the inner table best seen on coronal images (series 401, image 36). Brain sulci: Diffusely effaced due to left subdural hematoma. Ventricles: The left lateral ventricle is was completely effaced and the right lateral ventricle is mildly enlarged. Parenchyma: No abnormal densities. There is 1.6 cm of rightward midline shift secondary to large left cerebral epidural collection. There is subfalcine herniation and slight left uncal herniation (series 401, image 39) No masses, parenchymal hemorrhage, acute or chronic cortical vascular insults. Sellar/suprasellar region: No abnormalities Craniocervical junction: Patent foramen magnum. No Chiari one malformation. IMPRESSION: Large left cerebral convexity subdural hematoma measuring up to 2.5 cm, predominantly subacute to chronic with small focus of hyperdensity which could represent a more acute component. 1.6 cm of rightward midline shift with slight left uncal herniation. The left lateral ventricle is effaced, the right lateral ventricle is enlarged which may represent entrapment. Comparison with prior studies may be useful in determining ventricular enlargement. Report dictated by neuroradiology fellow. Final read to follow. These findings were discussed with by Dr. Alicea telephone at 1100 hours on 04/01/2019 Signed by: Giovanni Alicea MD on 04/01/2019 11:18 AM
--- NOTE | 2019-04-01 11:23 | NUR ---
NOTIFIED [facility], SPOKE WITH SHANNEN, INITIATED AIR TRANSPORT AT THIS TIME.
--- NOTE | 2019-04-01 11:24 | NUR ---
INTUBATION, RT AND RN'S X 2 IN ROOM. SIZE 8CM ETT PLACEMENT X ONE GOOD COLOR CHG NO VISUAL OF CORDS, SATS 100%, NO AIR HEARD EPIGASTRIC. BS BY RT. TAPED IN PLACE; ETT AT 27 LIP. VENT SET AC 14/450/100% NO PEEP
--- NOTE | 2019-04-01 11:25 | NUR ---
CHART AMMENDED 04/02/19 @ 0732 ETOMIDATE 20MG GIVEN BY RUFINO MADRID VECURONIUM 20MG GIVEN BY JULISU RN
--- NOTE | 2019-04-01 11:25 | NUR ---
lido one amp iv etomidate 20mg iv vecuronium 10mg iv all in ns flush RSI INTUBATION EMERGENCY
--- NOTE | 2019-04-01 11:26 | NUR ---
[facility] ETA 11MIN, SPOKE WITH SHANNEN.
--- NOTE | 2019-04-01 11:32 | NUR ---
HYDRALAZINE 10MG IVP BY MAURICE JOY
--- NOTE | 2019-04-01 11:32 | NUR ---
PROPOFOL DRIP BY JULIUS JOY 120KG WT
[2019-04-01] MEDS ORDERED: HYDRALAZINE HCL 20 MG/ML VIAL ONE (11:33)
[2019-04-01] MEDS ORDERED: PROPOFOL IV EMULSION 10MG/ML 100 ML ONE (11:34)
--- NOTE | 2019-04-01 11:37 | NUR ---
NGT HELD PER ORE GRADER D/T CONTRAINDICATION OF POSSIBLE ESPHOGEAL VARICES UNK.
--- NOTE | 2019-04-01 11:38 | NUR ---
BILATERAL WRIST RESTRAINTS FOR TUBE SAFETY.
--- NOTE | 2019-04-01 11:38 | NUR ---
2ND CALL FOR POST INTUBATION XRAY TO RADIOLOGY. [facility].
[2019-04-01 11:41] LABS: ALBUMIN/GLOBULIN RATIO 0.9 (0.8-2.0); ANION GAP 16.7 mmol/L (8-16); CALCIUM 9.4 mg/dL (8.4-10.2); CREATININE, SERUM 5.75 mg/dL (0.72-1.25); POTASSIUM 3.7 mmol/L (3.5-5.1)
--- NOTE | 2019-04-01 11:45 | NUR ---
RADIOLOGY AT BEDSIDE AT THIS TIME FOR CXR.
[2019-04-01 11:47] LABS: CREATINE KINASE MB 3.4 ng/mL (0-5.0)
--- NOTE | 2019-04-01 11:50 | NUR ---
BEDSIDE REPORT GIVEN TO [facility] FLIGHT NURSE,
[2019-04-01 11:51] LABS: B-TYPE NATRIURETIC PEPTIDE2 2472.3 pg/mL (0-100)
[2019-04-01] MEDS ORDERED: NICARDIPINE 20MG/200ML PREMIX 200 ML ONE (11:51)
[2019-04-01 11:56] LABS: INR 1.21; PROTHROMBIN TIME 15.9 seconds (11.9-14.5)
--- NOTE | 2019-04-01 11:56 | Diagnostic Imaging Report ---
EXAMINATION: CHEST SINGLE (PORTABLE) INDICATION: ^AMS COMPARISON: None FINDINGS: AP view TUBES and LINES: None. LUNGS: Lungs are well inflated. There are bibasilar atelectasis. Diffuse interstitial and alveolar alveolar opacities. PLEURA: No pleural effusion or pneumothorax. HEART AND MEDIASTINUM: Cardiac size is moderately enlarged. Aorta is tortuous and ectatic. BONES AND SOFT TISSUES: No acute osseous lesion. Soft tissues are unremarkable. UPPER ABDOMEN: No free air under the diaphragm. IMPRESSION: 1. Moderate cardiomegaly with tortuous ectatic aorta. 2. Pulmonary edema. Signed by: Dr. Jaleel Vizcarra M.D. on 04/01/2019 11:53 AM
[2019-04-01 11:57] LABS: PARTIAL THROMBOPLASTIN TIME 54.1 seconds (23.8-35.5)
[2019-04-01] MEDS ORDERED: FUROSEMIDE INJ 10 MG/ML 4 ML VIAL ONE (11:57)
--- NOTE | 2019-04-01 11:58 | Diagnostic Imaging Report ---
EXAMINATION: CHEST SINGLE (PORTABLE) INDICATION: ^intubation COMPARISON: Chest x-ray 04/01/2019 at 11:13 AM. FINDINGS: AP view TUBES and LINES: Endotracheal tube tip is 5.5 cm above the lee. LUNGS: Lungs are well inflated. There are bibasilar atelectasis. Diffuse interstitial and alveolar alveolar opacities PLEURA: No pleural effusion or pneumothorax. HEART AND MEDIASTINUM: Cardiac size is moderately enlarged. Aorta is tortuous and ectatic. BONES AND SOFT TISSUES: No acute osseous lesion. Chronic right rib fracture deformities. Soft tissues are unremarkable. UPPER ABDOMEN: No free air under the diaphragm. IMPRESSION: 1. Endotracheal tube tip is 5.5 cm above the lee. 2. Moderate cardiomegaly with pulmonary edema. Signed by: Dr. Jaleel Vizcarra M.D. on 04/01/2019 11:55 AM
[2019-04-01] MEDS ORDERED: FUROSEMIDE INJ 10 MG/ML 4 ML VIAL IV ONE (12:30)
[2019-04-02] MEDS ORDERED: VECURONIUM BROMIDE FOR INJ 20 MG VIAL IV STA (07:12)
[2019-04-02] MEDS ORDERED: HYDRALAZINE HCL 20 MG/ML VIAL IV STA (07:12)
[2019-04-02] MEDS ORDERED: ETOMIDATE 2 MG/ML 10 ML INJ IV STA (07:12)
[2019-04-02] MEDS ORDERED: PROPOFOL IV EMULSION 10MG/ML 100 ML IV PRN (07:15)
[2019-04-02] MEDS ORDERED: NICARDIPINE 20MG/200ML PREMIX 200 ML IV PRN (07:30)
[2019-04-02] MEDS ORDERED: PHYTONADIONE 10 MG/ML AMP SQ ONE (07:30)
[2019-04-02] MEDS ORDERED: LIDOCAINE HCL 2% 100 MG/5 ML IV ONE (07:30)
--- NOTE | 2019-04-02 07:44 | NUR ---
CHART AMMENDED 04/02/19 @ 0744 BILATERAL WRIST RESTRAINTS APPLIED PER MD ORDER BY JULIUS JOY
== END 2019-04-01 12:10 | disposition short-term general hospital (02) ==
LOC: ER 10:06
DX: R41.82 Altered mental status, unspecified (principal); R41.0 Disorientation, unspecified; I62.02 Nontraumatic subacute subdural hemorrhage; R29.818 Other symptoms and signs involving the nervous system; I16.9 Hypertensive crisis, unspecified
CPT/HCPCS: 31500; 36415; 70450; 71045; 80053; 82140; 82550; 82553; 83880; 84484; 85025; 85610; 85730; 94002; 99285; J0360; J1940; J2704; J3430